=== PATIENT | male | born 1940 ===

== ENCOUNTER 2025-09-26 13:52 | Outpatient (AMB) | payer MEDICARE, OTHER, SELFPAY ==
--- NOTE | 2025-09-26 13:51 | A.PHYSOV ---
Vital Signs 09/26/25 13:53 Height 5 ft 11 in Weight 276 lb BMI 38.5 Intake Visit Reasons: Bilateral knee injections Intake Note: Patient is a 82 year old male here for bilateral knee injections. Sports Management Intern Required: No Allergies No Known Allergies Allergy (Verified 09/26/25 13:51) [facility] Surgical History H/O hemorrhoidectomy H/O endovascular stent graft for abdominal aortic aneurysm Status post cardiac surgery Social History Alcohol intake: never Patient Tobacco Use Status: Never used Tobacco Current occupational status: retired Physical Exam Vital Signs: BMI result Body Mass Index 38.5 Office Procedures AMB Knee Injection AMB Knee Injection Procedure Details: Bilateral Knee injection: The risks, benefits and complications of the left knee injection were discussed with the patient including but not limited to increased serum glucose, infection, nerve pain, fat atrophy, pigment augmentation, bleeding and pain. All questions were answered to the patient's satisfaction. Verbal consent was obtained. The patient was eager to proceed. Using aseptic technique with Betadine, ethyl chloride was then used to desensitize the skin. Using a 22-gauge needle 40 mg of Kenalog and 3 mL 2% lidocaine were injected into the knee joint. A Band-Aid was applied. Patient tolerated the procedure well without immediate complication. Postinjection instructions were given. The procedure was repeated on the right. Knee Injection - : Bilateral All charges added?: Procedure code (CPT) selection complete Office Meds Kenalog 40 mg/mL suspension for injection Performing Provider: JACINTA Amaya Performing Location[facility] Administered by: JACINTA Amaya on 09/26/25 14:15 Dose Route Admin Location Dispensed Lot Number Expiration Date [facility] Boxer Operator 40 mg intra-articular 1 mL [id number] [employer] Total Dispensed Waste 1 mL 0 % lidocaine (PF) 20 mg/mL (2 %) injection solution Performing Provider: JACINTA Amaya Performing Location: [facility] Administered by: JACINTA Amaya on 09/26/25 14:15 Dose Route Admin Location Dispensed Lot Number Expiration Date [facility] Boxer Operator 60 mg intra-articular 50 mL [id number] Total Dispensed Waste 50 mL 0 % Assessment & Plan Assessment & Plan (1) Bilateral primary osteoarthritis of knee: Code(s): M17.0 - Bilateral primary osteoarthritis of knee Category: Medical Plan Mr. Kaiser is an 85-year-old male seen in evaluation today for bilateral knee osteoarthritis. Today consented to bilateral knee corticosteroid injection. He is given post-injection instructions, recommend: Moist heat compresses for 15 minutes with 5 times daily. Continue low-impact activities such as walking, biking and swimming. Follow-up with our office as needed. Orders: Orders AMB Knee Injection Today M17.0 - Bilateral primary osteoarthritis of knee Coding Level of Care Code Procedure Only Diagnoses Bilateral primary osteoarthritis of knee M17.0 CPT Codes AMB Knee Injection - Hip/Bursa Injection - : Bilateral ([id number])
[2025-09-26 13:53] VITALS: BMI 38.5
--- OUTSIDE RECORDS SUMMARY | 2025-09-26 17:46 | XMS_ITS | Continuity of Care Document ---
Author Organization [facility] [address] [place] [address] Phone [phone] Care Team Providers Care Oracle Soa Architect Name Role Phone Yasmeen Rich MD Care Team Information Mechanical Sound Technician [phone] Problems Active Problems Provider Date Type 2 diabetes mellitus Reji Stewart M.D. O nset: 08/07/2022 Placement of stent in coronary artery Reji strauss M.D. Onset: 08/07/2022 Kidney stone Reji Stewart M.D. Onset: 04/2022 Insulin treated type 2 diabetes mellitus Reji lindsey M.D. Onset: 08/11/2023 Hypercholesterolemia Reji Stewart M.D. Onset : 08/07/2022 Essential hypertension Reji Stewart M.D. Ons et: 08/07/2022 Rheumatoid arthritis Reji Stewart M.D. Onset : 08/07/2022 Asymptomatic coronary heart disease Reji martinez M.D. Onset: 08/07/2022 Social History Type Date Description Comments Sex Male Sex Unknown Tobacco Use Start: Unknown Never Smoked Cigarettes ETOH Use Never used alcohol Allergies and adverse reactions Description No Known Drug Allergies Medications Active Medications SIG Qnty Indications Order ing Provider Date Metformin HCL [id number] Tablets ER 24HR take 1 tablet by mouth qpm 90tabs Reji Stewart M.D. 11/13/2023 BD Pen Vinayak Uf Short 8mm 100'S 31G5/16 Use Once Daily In The Evening as Directed 100units Reji Stewart M.D. 11/06/2023 Freestyle Lite TestStrips use to test blood sugars twice a day 200units E11.9 Reji Stewart M.D. 06/12/2023 Freestyle Lite Blood Glucose Monitoring SystemW/Device Kit use to test blood sugar twice daily dx:E11.9 1units Reji Stewart M.D. 06/05/2023 Lantus Teisrrtg868Xwld/ML Solution Pen-Inject Inject 80 Units Under The Skin Daily 75units Reji Stewart M.D. 08/07/2022 BD Pen Needle/Short/Ultra- Fine/31G X 8mm31G X 8 mm Misc use 1 syringe once daily in the evening as directed Dx: E11.9 100units E11Rad Stewart M.D. 08/07/[address] 1 qd Reji Stewart M.D. 08/07/2022 Metoprolol Succinate BB783th Tablets ER 24HR 1 by mouth every day Reji Stewart M.D. 08/07/2022 Humira Pen CF40mg/0.4ML PNKT q 2 weeks Reji Stewart M.D. 08/07/2022 Kjkcskkyv36kz Tablets 1 by mouth every day 30tabs Reji Stewart M.D. 08/07/2022 Folic Hodk4zx Tablets 1 by mouth twice a day Reji Stewart M.D. 08/07/2022 Onetouch Delica Plus Lancets Extra Fine 33GPlus 33G Misc 1 lancet to finger once a day Dx: E11.9 100units E11Rad Stewart M.D. 08/07/2022 Onetouch VerioStrips use to test blood sugar once daily dx:E11.9 100units E11.9 Reji Stewart M.D. 08/07/2022 Methotrexate2.5mg Tablets 8 tabs every Halista S cott M, Urnwlgnntu34uj Tablets 1 tabs by mouth every day 90tabs Unknown Atorvastatin Mxpusgb44mc Tablets 1 by mouth every day Bertha Quezada e Hydrochlorothiazide 25mg Tablets 1 by mouth every day 90tabs Unknown / 000 Trulicity1.5mg/0.5M L Solution Pen-Inject inject 1.5mg subcutaneously every week 6ml Reji Stewart M.D. Vital Signs Date Vital Result Comment 11/13/2023 1:25pm BP Systolic 122 mmHg BP Diastolic 70 mmHg Heart Rate 105 /min Height 73 inches 6'1 Weight 286.00 lb BMI (Body Mass Index) 37.7 kg/m2 Results Test Acquired Date Facility Test Result H/L Range N ote Hemoglobin A1c 11/13/2023 Inhouse Hemoglobin A1c 7.6% Glucose Fingerstick 11/13/2023 Inhouse Glucose Fingerstick 200 Hemoglobin A1c 08/11/2023 Inhouse Hemoglobin A1c 7.5% Glucose Fingerstick 08/11/2023 Inhouse Glucose Fingerstick 139 Hemoglobin A1c 04/06/2023 Inhouse Hemoglobin A1c 7.1% Glucose Fingerstick 04/06/2023 Inhouse Glucose Fingerstick 237 Hemoglobin A1c 08/07/2022 Inhouse Hemoglobin A1c 6.8% Glucose Fingerstick 08/07/2022 Inhouse Glucose Fingerstick 144 Medical Devices Description No Information Available Encounters Type Date Location Provider Dx Diagnosis Office Visit 11/13/2023 1:00p Main Office Reji Stewart M.D. E11.9 Type 2 diabetes mellitus without complications Z79.4 moth exterminator (current) use of insulin I25.89 Other forms of chron ic ischemic heart disease M06.9 Rheumatoid arthritis , unspecified I10 Essential (primary) hypertension Assessments Date Code Description Provider 11/13/2023 E11.9 Type 2 diabetes mellitus without complications Reji Stewart M.D. 11/13/2023 Z79.4 moth exterminator (current) use of i nsulin Reji Stewart M.D. 11/13/2023 I25.89 Asymptomatic coronary heart disease Reji Stewart M.D. 11/13/2023 M06.9 Rheumatoid arthritis Reji lindsey M.D. 11/13/2023 I10 Essential hypertension Reji Stewart M.D. Plan of Treatment No Information Available Functional Status Description No Information Available Mental Status Description No Information Available Referrals Description No Information Available
--- OUTSIDE RECORDS SUMMARY | 2025-09-26 17:46 | XMS_ITS | Encounter Summary ---
Author Organization [facility] Address [address] [place] [address] Care Team Providers Care Arc Welding Machine Operator Name Role Phone Ashley Hughes MD Primary Care Provider Reason for Visit * Reason Onset Date Comments referral 11/15/2024 Encounter Details Date Type Department Care Team (Late st Contact Info) Description 11/15/2024 Telephone [facility] [address] [place] [address] Mag Arreola DO [address] [place] [address] Social History Tobacco Use Types Packs/Day Years Used Date Smoking Tobacco: Former Cigarettes 1.5 40 0 [birth year]02/1954 - 11/02/1994 Smokeless Tobacco: Never Alcohol Use Standard Drinks/Week Comments No 0 (1 standard drink = 0.6 oz pur e alcohol) Sex and Gender Information Value Date Recorded Sex Assigned at Male 01/05/2025 10:04 AM EST Legal Sex Male 2:03 AM EST Gender Identity Male 01/05/2025 10:04 AM EST Sexual Orientation Straight 01/05/2025 10 :04 AM EST documented as of this encounter Progress Notes * Tarsha Lopez - 11/15/2024 1:48 PM EST Referral Request: What insurance does the patient have today? / Referrals cannot be processed if the insurance is not accurate. If the insurance listed above in red is NO BILLING INFORMATION FOUND FOR THIS ENCOUTNER The patients correct insurance must be obtained and registered in [facility] or their referral can not be processed. Is this a retro request? no. If yes for what date of service do you need the retro referral? not applicable Who is calling to request this referral? Pts daughter If the caller is not the patient, what is their name? belia Ask the patient WHO referred them to this specialty: Patient self referred FIRST and LAST NAME of SPECIALIST PATIENT is seeing: unknown What specialty is this? radar repairer DIAGNOSIS Patient is being seen for (Not a body part or a procedure): diabetic/nutrition Have you seen this SPECIALIST for this PROBLEM/DX before? If YES, when? No Have you checked REVIEW or the APPT DESK to see if this referral has already been done or has visits left? no Is this visit: Initial Visit Address of Specialist: unknown Phone # of Specialist: unknown Fax #: (if applicable): unknown Does patient have an appointment scheduled?: no Date of appointment- (including a retro-request): n/a Is this appointment related to: n/a documented in this encounter Plan of Treatment Upcoming Encounters Date Type Department Care Team (Late st Contact Info) Description 10/11/2025 11:30 AM EST Office Visit Internal Medicine - [address] [address] Jaci Coffman NP [address] [place] [address] 10/17/2025 7:40 AM EST Office Visit [facility] [address] [facility] [address] [place] [phone] Marj Bell NP [address] [place] [address] [place] [address] 10/23/2025 1:45 PM EST Office Visit Orthopedic Surgery - [place] [address] [facility] [address] [place] [id number] Mars Goff, DPLay [address] [facility] [address] [place] [address] documented as of this encounter Visit Diagnoses Diagnosis Type 2 diabetes mellitus without complication, unspecified whether longterm insulin use- Primary documented in this encounter Additional Health Concerns Assessment Noted Time PHQ-9 Depression Total Score: 1 10/06/20 11:35 AM EST A fall risk assessment has been complete d for the patient 10/05/2024 4:52 PM EST documented as of this encounter Care Teams Arc Welding Machine Operator Relationship Specialty Start Date End Date Ashley Hughes MD [address] [place] [address] PCP - General Internal Medicine 06/22/25 documented as of this encounter
--- OUTSIDE RECORDS SUMMARY | 2025-09-26 17:46 | XMS_ITS ---
Author Name [facility] Organization Unknown Care Team Organization Name Specialty Phone Email Start Date End Da te [facility] 06/21/2025 [facility] Yasmeen Rich Primary Care 04/10/20232023 [facility] Termed, PROVIDER Primary Care 09/09/202206/02
--- OUTSIDE RECORDS SUMMARY | 2025-09-26 17:46 | XMS_ITS | Clinical Summary ---
Author Organization [facility] Address [address] [place] [address] Phone Care Team Providers Care Dental Service Technician Name Role Phone Mag Arreola DO Primary Care Provider [phone] Allergies No known active allergies Medications atorvastatin (LIPITOR) 80 MG tablet Take 80 mg by mouth daily. 4 Active meloxicam (MOBIC) 15 MG tablet Take 15 mg by mouth daily. Active folic acid (FOLVITE) 1 MG tablet Take 1 mg by mouth daily. 5 Active furosemide (LASIX) 20 MG tablet Take 40 mg by mouth daily. Active MULTIVITAMIN ORAL Take 1 capsule by mouth daily. Active tamsulosin (FLOMAX) 0.4 mg Cap Take 0.4 mg by mouth daily. 4 Active lisinopril (PRINIVIL,ZEST RIL) 10 MG tablet Take 10 mg by mouth daily. 4 Active acetaminophen (TYLENOL) 650 MG CR tablet Take 1,300 mg by mouth 2 (two) times a day. Active XARELTO DVT-PE TREAT 30D START 15 mg (42)- 20 mg (9) tablets in DVT/PE starter pack 5 Active gabapentin (NEURONTIN) 100 MG capsule Take 100 mg by mouth every 12 (twelve) hours. 5 Active HUMIRA,CF, PEN 40 mg/0.4 mL pen kit citrate free Inject 40 mg under the skin every 14 (fourteen) days. 5 Active blood-glucose meter kit by Other route as needed for other (free text field). Freestyle lite Active FREESTYLE LITE Strp strips 1 each by Miscellaneous route as needed. Active metoprolol succinate (TOPROL-XL) 100 MG 24 hr tablet Take 1 tablet (100 mg total) by mouth daily. 5 Active rivaroxaban (XARELTO) 15 mg Tab Take 15 mg by mouth daily. 5 Active nitroglycerin (NITROSTAT) 0.[address] 0.4 mg under the tongue. 4 Active LANTUS SOLOSTAR U-100 INSULIN 100 unit/mL (3 mL) InPn injection penIndications :Type 2 diabetes mellitus with peripheral neuropathy Inject 56 Units under the skin nightly at bedtime. 5 Active Active Problems Problem Noted Date Diagnosed Date Osteoarthritis 04/10/2025 Type 2 diabetes mellitus with peripheral neuropa thy 04/10/2025 Assessment & Plan (07/24/2025 1:53 PM EDT): Control is good based upon the patient's freestyle radha 3+ sensor download. No frequent or severe hypoglycemia. Will maintain his regimen. Continue to work on eating healthy and being active. To call or message with any issues managing his glucose levels. Up to date with ophtho. Labs ordered Assessment & Plan (04/10/2025 2:09 PM EDT): 84 yo man with longstanding Type 2 diabetes, control appears excessively tight given age/co-morbidities with near-normal HbA1c on high dose insulin. Hx intolerance to metformin (diarrhea). He has peripheral neuropathy & CKD. Discussed rationale & goals for control. Role of diet, exercise, medications. Role of & goals for HbA1c & SMBG. Reviewed options to improve control with risks & benefits, including intensification of lifestyle & available medications. Will lower insulin from 80 to 70 units. Will refer to RD/CDE for help with dietary modifications. Will send in paperwork for radha. Continue to work on eating healthy & keeping active. To call or send in log with problems with glucose control. Follows w/ podiatry. Up to date with ophthoBP & lipids under good control. BPH (benign prostatic hyperplasia) 02/03/2025 COPD (chronic obstructive pulmonary disease) 01/2025 Kidney tumor 02/03/2025 Memory loss 02/03/2025 CAD (coronary artery disease) 11/02/2024 Anemia 04/01/2024 Kidney stone 08/07/2022 Rheumatoid arthritis 08/07/2022 Edema 11/13/2021 Overview (04/10/2025): Last Assessment & Plan: Patient presents today with leg edema. He states that this does improve with elevation . He is unable to use compression stockings due to difficulty getting them on. I will switch his hydrochlorothiazide to furosemide and repeat a basic metabolic panel in 1 week. Essential hypertension 06/15/2018 Overview (04/10/2025): Last Assessment & Plan: Patient's blood pressure is borderline today with a reading of 140/78. I am transitioning hydrochlorothiazide to furosemide due to leg edema and this may also help his blood pressure. He continues on lisinopril and metoprolol. GERD (gastroesophageal reflux disease) 7 Hypercholesterolemia 12/18/2016 Overview (04/10/2025): Last Assessment & Plan: Patient's last LDL cholesterol was 59. This is at goal. Continue with statin as prescribed. Hearing loss 08/18/2010 Encounters Date Type Department Care Team Description 09/13/2025 Telephone [facility] [address] [address] Crystal Serrano MA Medication Refill 08/31/2025 3:00 PM EDT Nutrition [facility] [address] [place] [phone] Ruthy Deal LDN Type 2 diabetes mellitus with peripheral neuropathy (Primary Dx) 07/17/2025 12:30 PM EDT Office Visit [facility] [place] [address] [facility] [place] [phone] Margo Rios PA-C Type 2 diabetes mellitus with peripheral neuropathy (Primary Dx) 07/11/2025 12:05 PM EDT - 07/11/2025 3:27 PM EDT Emergency [facility] [address] [place] [address] Rafa Jerome MD Discharge Disposition: Home or Self Care 07/04/2025 Refill [facility] [address] [place] [address] Dacia Jones CMA Medication Refill from Last 3 Months Immunizations Immunization Administration Dates Next Due COVID-19 (Pre-08/24) Pfizer Vaccine, mRNA, PF 01/01/2021,12/11/2020 INFLUENZA, SPLIT VIRUS, TRIVALENT PF 08/20/2016, 07/22/2010 INFLUENZA, SPLIT VIRUS, TRIV ALENT W/ PRESERVATIVE IM 08/06/2020,08/11/2017,10/04/2012,03/08 Influenza High-Dose Quadriva lent Preservative Free IM 09/11/2023,10/06/2019,08/25/2018,08/07,08/26/2013 Influenza Trivalent Adjuvant ed Preservative free IM 06/24/2021 Influenza, Unspecified Formulation 08/02/2022,,08/16/2018 Pneumococcal conjugate PCV13 12/16/2017 Pneumococcal polysaccharide PPSV23 11/13/2006 Td, unspecified formulation 06/07/2012 Tdap 09/12/2020 Social History Tobacco Use Types Packs/Day Years Used Date Smoking Tobacco: Never Smokeless Tobacco: Never Tobacco Cessation:Counseling Given: Not Answered Alcohol Use Standard Drinks/Week Comments Not Currently 0 (1 standard drink = 0.6 oz pur e alcohol) Education Answer Date Recorded Are you interested in more education? Not on benji e 07/15/2024 Are you concerned about learning? Not on file 07/15/2024 No 07/15/2024 No 07/15/2024 Food Answer Date Recorded Within the past 6 months we worried whether our food would run out before we got money to buy more. Never True 07/11/2025 Within the past 6 months the food we bought just didn't last and we didn't have enough money to get more. Never True Residential Stability Answer Date Recor ded What is your housing situation today? I have senthil sing 07/11/2025 How many times have you move d in the past 12 months? Zero (I did not move) 07/11/2025 Paying for Meds Answer Date Recorded Do you have trouble paying for medicines? No 07/11/2025 Paying Utility Bills Answer Date Record ed Do you have trouble paying your heating or elect ricity bill? No 07/11/2025 Transportation Answer Date Recorded Has the lack of transportati on kept you from medical appointments or from getting medications? No 07/11/2025 Digital Access Answer Date Recorded No 07/11/2025 Yes 07/11/2025 Do you have reliable internet access at home? Ye s 07/11/2025 Do you have a device (e.g., phone, tablet, computer) with a working camera? Yes 07/11/2025 Intimate Partner Violence Answer Date R ecorded Are you denied basic needs s uch as food, clothing, or medical care? No 07/11/2025 In the past 12 months have y ou been in a relationship with a person who hurts, threatens, or tries to control you? No 07/11/2025 Are you denied basic needs s uch as food, clothing, or medical care? No 07/11/2025 In the past 12 months have y ou been in a relationship with a person who hurts, threatens, or tries to control you? No 07/11/2025 Sex and Gender Information Value Date Recorded Sex Assigned at Not on file Legal Sex Male 2:49 PM EDT Gender Identity Not on file Sexual Orientation Not on file Last Filed Vital Signs Vital Sign Reading Time Taken Comments Blood Pressure 124/68 07/17/2025 12:06 PM EDT Pulse 56 07/17/2025 12:06 PM EDT Temperature 36.3 C (97.4 F) 07/17/2025 12:06 PM EDT Respiratory Rate 18 07/17/2025 12:06 PM EDT Oxygen Saturation 99% 07/17/2025 12:06 PM EDT Inhaled Oxygen Concentration - - Weight 121.1 kg (267 lb) 08/31/2025 2:07 PM EDT Height 185.4 cm (6' 0.99 ) 07/17/2025 12:06 PM E DT Body Mass Index 35.23 07/17/2025 12:06 PM EDT Plan of Treatment Upcoming Encounters Date Type Department Care Team (Late st Contact Info) Description 11/06/2025 11:40 AM EST Office Visit [facility] [place] [address] [place] [phone] Evlira Hunter MD [address] [phone] [email or web address] 01/11/2026 2:00 PM EDT Nutrition [facility] [address] [place] [phone] Ruthy Deal LDN [address] [place] [phone] 02/26/2026 1:10 PM EDT Office Visit [facility] [place] [address] [place] [phone] Margo Rios PA-C [address] [place], [place] [phone] [email or web address] Health Maintenance Due Date Last Done Comments DEPRESSION SCREENING 1952 ZOSTER VACCINES (1 of 2) 1959 RSV VACCINE (1 - 1-dose 75+ series) 2015 COVID-19 VACCINE (3 - Pfizer risk series) 01/29/2021 01/01/2021, 12/11/2020 DIABETIC EYE EXAM 04/10/2025 INFLUENZA VACCINE (#1) 2025 , 08/02/2022, 06/24/2021, Additional history exists BLOOD PRESSURE 01/14/2026 07/17/2025 HEMOGLOBIN A1C 01/23/2026 07/26/2025, 03/03/2025 CREATININE LEVEL 07/11/2026 07/11/2025, 03/18/2025 POTASSIUM LEVEL 07/11/2026 07/11/2025, 03/18/2025 Adult Td,Tdap Booster 09/12/2030 09/12/2020, 012 PNEUMOCOCCAL VACCINES (50+ years) Completed 12/16/2017, 11/13/2006 HEPATITIS A VACCINES Aged Out No long er eligible based on patient's age to complete this topic HIB VACCINES Aged Out No longer eligi ble based on patient's age to complete this topic MENINGOCOCCAL VACCINES (ACWY) Aged Out No longer eligible based on patient's age to complete this topic MENINGOCOCCAL VACCINES (B) Aged Out N o longer eligible based on patient's age to complete this topic Medical Devices Not on file Procedures Procedure Name Priority Date/Time Associated Diagnosis Comments US LOWER EXTREMITY VEINS DUPLEX COMPLETE (BILATERAL) Routine 07/11/2025 2:13 PM EDT Pain of left lower extremity TROPONIN STAT 07/11/2025 1:41 PM EDT D-DIMER Routine 07/11/2025 12:43 PM EDT TROPONIN STAT 07/11/2025 12:43 PM EDT BLOOD BANK HOLD SPECIMEN STAT 07/11/2025 12:43 PM EDT PT-INR STAT 07/11/2025 12:43 PM EDT CBC AND DIFFERENTIAL STAT 07/11/2025 12:43 PM EDT BASIC METABOLIC PANEL (BMP) STAT 07/11/2025 12:43 PM EDT POCT GLUCOSE STAT 07/11/2025 12:24 PM EDT ECG 12-LEAD STAT 07/11/2025 12:19 PM EDT POCT GLUCOSE Routine 07/11/2025 12:16 PM EDT from Last 3 Months Results * US Lower Extremity Veins Duplex Complete (Bilateral) (07/11/2025 2:13 PM EDT) MGB IMG CLOTH FEEDER COMMENT Partially occlusive thrombus in the left common femoral vein just inferior to the common femoral vein/greater saphenous vein. Limited evaluation of the left calf veins secondary to subcutaneous edema. [facility] Anatomical Region Laterality Modality Ultrasound 07/11/2025 2:52 PM EDT Impressions 07/11/2025 3:05 PM EDT Partially occlusive thrombus in the left common femoral vein just inferior to the common femoral vein/greater saphenous vein. Limited evaluation of the left calf veins secondary to subcutaneous edema. No DVT of the right leg. A clinically significant result was initiated on 07/11/2025 2:59 PM, Message ID [id number]. Narrative 07/11/2025 3:05 PM EDT US LOWER EXTREMITY VEINS DUPLEX COMPLETE (BILATERAL) Referring clinician's provided indication for this examination in [facility]: Leg deep vein thrombosis (DVT) suspected TECHNIQUE: Lower extremity venous ultrasound with color and spectral Doppler. COMPARISON: None FINDINGS: Right lower extremity Common femoral vein: Normal compressibility and flow characteristics. Femoral vein: Normal compressibility and flow characteristics. Proximal profunda femoral vein: Normal compressibility. Popliteal vein: Normal compressibility and flow characteristics. Posterior tibial veins: Normal compressibility. Peroneal veins: Not visualized Gastrocnemius veins: Normal compressibility. Great saphenous vein: Normal compressibility at the saphenofemoral junction. Other: None. Left lower extremity Common femoral vein: Compression: Partially compressible involving the left common femoral vein distal to the common femoral vein/greater saphenous vein junction. Age: Acute. Femoral vein: Normal compressibility and flow characteristics. Proximal profunda femoral vein: Normal compressibility. Popliteal vein: Normal compressibility and flow characteristics. Posterior tibial veins: Not visualized Peroneal veins: Not visualized Gastrocnemius veins: Not visualized Great saphenous vein: Normal compressibility at the saphenofemoral junction. Other: None. Procedure Note Ladonna Powell MD - 07/11/2025 US LOWER EXTREMITY VEINS DUPLEX COMPLETE (BILATERAL) Referring clinician's provided indication for this examination in [facility]:Leg deep vein thrombosis (DVT) suspected TECHNIQUE: Lower extremity venous ultrasound with color and spectralDoppler. COMPARISON: None FINDINGS: Right lower extremity Common femoral vein: Normal compressibility and flow characteristics. Femoral vein: Normal compressibility and flow characteristics. Proximal profunda femoral vein: Normal compressibility. Popliteal vein: Normal compressibility and flow characteristics. Posterior tibial veins: Normal compressibility. Peroneal veins: Not visualized Gastrocnemius veins: Normal compressibility. Great saphenous vein: Normal compressibility at the saphenofemoraljunction. Other: None. Left lower extremity Common femoral vein: Compression: Partially compressible involving theleft common femoral vein distal to the common femoral vein/greatersaphenous vein junction. Age: Acute. Femoral vein: Normal compressibility and flow characteristics. Proximal profunda femoral vein: Normal compressibility. Popliteal vein: Normal compressibility and flow characteristics. Posterior tibial veins: Not visualized Peroneal veins: Not visualized Gastrocnemius veins: Not visualized Great saphenous vein: Normal compressibility at the saphenofemoraljunction. Other: None. IMPRESSION: Partially occlusive thrombus in the left common femoral vein just inferiorto the common femoral vein/greater saphenous vein. Limited evaluation ofthe left calf veins secondary to subcutaneous edema. No DVT of the right leg. A clinically significant result was initiated on 07/11/2025 2:59 PM, MessageID [id number]. Rafa Jerome MD CV US VASCULAR F inal Result * (ABNORMAL) Troponin (07/11/2025 1:41 PM EDT) Only the most recent of2 resultswithin the time period is included. Troponin-T, HS Gen5 33(H) 0 - 14 ng/L [facility] Blood 07/11/2025 1:41 PM EDT 07/11/2025 1:48 PM EDT us Rafa Jerome MD LAB BLOOD BKR ORD ERABLES Final Result [facility] [address] [place] [address] * Hold Specimen In Blood Bank (07/11/2025 12:43 PM EDT) Expiration Date of Sample 07/14/2025 ,2359 [facility] Resulting Agency [facility] Blood 07/11/2025 12:4 3 PM EDT 07/11/2025 12:52 PM EDT Rafa Jerome MD LAB BLOOD BANK TE ST ORDERABLES Final Result Performing Organization Address [facility] Co de Phone Number [address] [address] * (ABNORMAL) PT-INR (07/11/2025 12:43 PM EDT) Pathologist [facility] PT 24.8(H) 10.2 - 12.9 sec [facility] INR 2.0(H) 0.9 - 1.1 [facility] Comment:Therapeutic range fo r oral Vitamin K antagonists: 2.0-3.5 Blood 07/11/2025 12:4 3 PM EDT 07/11/2025 12:52 PM EDT Rafa Jerome MD LAB BLOOD BKR ORD ERABLES Final Result Performing Organization Address [facility] Co de Phone Number [address] [address] * D-dimer (07/11/2025 12:43 PM EDT) D-DIMER 219 <500 ng/mL [facility] Comment:In patients with low to moderate pre-test probability scores for VTE (PE or DVT), a D-Dimer cut-off less than 500 ng/mL ([facility]) has a negative predictive value (NPV) of 97 to 100%. 07/11/2025 12:4 3 PM EDT 07/11/2025 12:52 PM EDT Rafa Jerome MD LAB BLOOD BKR ORD ERABLES Final Result [facility] [address] [place] [address] * (ABNORMAL) CBC and differential (07/11/2025 12:43 PM EDT) WBC 7.41 4.00 - 11.00 K/uL [facility] RBC 3.99(L) 4.50 - 5.90 M/uL [facility] HGB 11.6(L) 13.5 - 17.5 g/dL [facility] HCT 36.3(L) 41.0 - 53.0 % [facility] PLT 104(L) 150 - 450 K/uL [facility] MCV 91.0 80.0 - 100.0 fL [facility] MCH 29.1 27.0 - 31.0 pg [facility] MCHC 32.0 32.0 - 36.0 g/dL [facility] RDW 14.6(H) 11.5 - 14.5 % [facility] MPV 11.2 8.4 - 12.0 fL [facility] NRBC 0.00 0.00 /100 WBCs [facility] ABSOLUTE NRBC 0.00 0.00 K/uL [facility] DIFF METHOD Auto [facility] NEUTS 71.4 48.0 - 76.0 % [facility] LYMPHS 15.9(L) 18.0 - 41.0 % [facility] MONOS 10.1 4.0 - 11.0 % [facility] EOS 1.6 0.0 - 5.0 % [facility] BASOS 0.3 0.0 - 1.5 % [facility] Granulocytes, immature (%) 0.7 0.0 - 0.9 % [facility] ABSOLUTE NEUTS 5.29 1.92 - 7.60 K/uL [facility] ABSOLUTE LYMPHS 1.18 0.72 - 4.10 K/uL [facility] ABSOLUTE MONOS 0.75 0.16 - 1.10 K/uL [facility] ABSOLUTE EOS 0.12 0.00 - 0.50 K/uL [facility] ABSOLUTE BASOS 0.02 0.00 - 0.15 K/uL [facility] Granulocytes, immature 0.05 0.00 - 0.09 K/uL [facility] Blood 07/11/2025 12:4 3 PM EDT 07/11/2025 12:52 PM EDT Rafa Jerome MD LAB BLOOD BKR ORD ERABLES Final Result [address] [address] * (ABNORMAL) Basic metabolic panel (07/11/2025 12:43 PM EDT) SODIUM 138 133 - 146 mmol/L [facility] CHLORIDE 103 96 - 108 mmol/L [facility] POTASSIUM 5.3(H) 3.3 - 5.1 mmol/L [facility] CO2 24 21 - 35 mmol/L [facility] BUN 57(H) 6 - 19 mg/dL [facility] CREATININE 2.40(H) 0.5 - 1.5 mg/dL [facility] GLUCOSE 137(H) 70 - 99 mg/dL [facility] CALCIUM 9.2 8.4 - 10.3 mg/dL [facility] EGFR 26(L) >59 mL/min/1.7 3m2 [facility] Comment:Estimated glomerular filtration rate calculated using the CKD-EPI refit equation. ANION GAP 16 10 - 20 mmol/L [facility] Blood 07/11/2025 12:4 3 PM EDT 07/11/2025 12:52 PM EDT Rafa Jerome MD LAB BLOOD BKR ORD ERABLES Final Result [address] [address] * (ABNORMAL) POCT Glucose (07/11/2025 12:24 PM EDT) Glucose 158(A) 70 - 100 mg/dL 07/11/2025 12:2 4 PM EDT us Delvin Patel DO LAB POCT ENTER/EDIT ORDERABLE S Final Result * ECG 12-LEAD (07/11/2025 12:19 PM EDT) Ventricular Rate EKG/MIN 50 BPM [facility] Atrial Rate 50 BPM [facility] ME Interval 172 ms [facility] QRS Duration 142 ms [facility] QT Interval 482 ms [facility] QTC Interval 439 ms [facility] P [place]re[place] 66 degrees [facility] R Wave [place] -54 degrees [facility] T Wave [place] -3 degrees [facility] 07/11/2025 12:1 9 PM EDT 07/12/2025 9:07 AM EDT Narrative [facility] - 07/12/2025 9:07 AM EDT Sinus bradycardia Right bundle branch block Left anterior fascicular block Bifascicular block Abnormal ECG No previous ECGs available Confirmed by Hugo Alejandre ([id number]) on 07/12/2025 9:07:03 AM us Delvin Patel DO ECG ORDERABLES Final Result [facility] * (ABNORMAL) POCT Glucose (07/11/2025 12:16 PM EDT) Glucose, POCT 159(H) 70 - 100 mg/dL [facility] 07/11/2025 12:1 6 PM EDT 07/11/2025 1:24 PM EDT us Rafa Jerome MD POINT OF CARE JAZMIN T ORDERABLES Final Result [facility] [address] [place] [address] from Last [address] [place] [address] FOR [facility] MEDICARE SUPPLEMENT MEDICARE PART A & B Member Subscriber Plan / Payer (Ef fective 2006-Present) Name:Eduardo Kaiser Member ID:[id number] Relation to Subscriber:Self Name:Eduardo Kaiser Subscriber ID:[id number] Payer ID:[id number] Group ID:Not on file Type:Medicare Address: [employer] [address] [place] [address] MEDICARE SUPPLEMENT MEDICARE PART A & B FOR LIFE MEDICARE SUPPLEMENT MEDICARE PART A & B FOR LIFE MEDICARE SUPPLEMENT MEDICARE PART A & [place] [address] [place] [address] FOR LIFE MEDICARE SUPPLEMENT MEDICARE PART A & B [facility] FOR LIFE MEDICARE SUPPLEMENT MEDICARE PART A & B Care Teams Dental Service Technician Relationship Specialty Start Date End Date Susanne ArreolamanDO briana [address] [place] [address] PCP - General Internal Medicine 04/10/25 Additional Source Comments The information contained in this document represents components of the legal health record. It is not the complete legal health record.[facility]
--- OUTSIDE RECORDS SUMMARY | 2025-09-26 17:47 | XMS_ITS | Encounter Summary ---
Author Organization [facility] Address [address] [place] [address] Care Team Providers Care Gas Station Manager Name Role Phone Ashley Hughes MD Primary Care Provider [phone] Encounter Details Date Type Department Care Team (Late st Contact Info) Description 09/08/2025 Results Follow-Up [facility] [address] [place] [phone] Allison Fagan MA Social History Tobacco Use Types Packs/Day Years [...] AM EST documented as of this encounter Functional Status * Are you deaf or do you have serious difficulty hearing? Answer Date of Assessment Author No 03/17/2025 6:20 AM Aline Gordillo RN * Are you blind or do you have serious difficulty seeing, even when wearing glasses? Answer Date of Assessment Author No 03/17/2025 6:20 AM Aline Gordillo RN * Do you have serious difficulty walking or climbing stairs? Answer Date of Assessment Author Yes 03/17/2025 6:20 AM EDT Aline Jeffers RN * Do you have serious difficulty dressing or bathing? Answer Date of Assessment Author Yes 03/17/2025 6:20 AM EDT Aline Jeffers RN * Because of a physical, mental, or emotional condition, do you have serious difficulty doing errandsalone such as visiting the doctor? Answer Date of Assessment Author Yes 03/17/2025 6:20 AM EDT Aline Jeffers RN documented as of this encounter Mental Status * Because of a physical, mental, or emotional condition, do you have serious difficulty concentrating, remembering, or making decisions? (5 years old or older) Answer Entry Date Author No 03/17/2025 6:20 AM EDT Aline Jeffers RN documented in this encounter Plan of Treatment Upcoming Encounters Date Type Department Care Team (Late st Contact Info) Description 10/11/2025 11:30 AM EST Office Visit Internal Medicine - [address] [phone] Jaci Coffman, NEEL [address] [place] [address] 10/17/2025 7:40 AM EST Office Visit [facility] [address] [facility] [address] [place] [address] Marj Bell, NEEL [address] [place] [address] [address] [place] [address] 10/23/2025 1:45 PM EST Office Visit Orthopedic Surgery - [facility] [address] [facility] [address] [place] [address] Mars Goff DPM [address] [address] documented as of this encounter Visit Diagnoses Not on filedocumented in this encounter Additional Health Concerns Assessment Noted Time PHQ-9 Depression Total Score: 1 10/06/20 11:35 AM EST A fall risk assessment has been complete d for the patient 10/05/2024 4:52 PM EST documented as of this encounter Care Teams Gas Station Manager Relationship Specialty Start Date End Date Ashley Hughes MD [address] [facility] [place] [phone] PCP - General Internal Medicine 06/22/25 documented as of this encounter
--- OUTSIDE RECORDS SUMMARY | 2025-09-26 17:47 | XMS_ITS | Clinical Summary ---
Author Organization [address] [place] [address] Address [address] [place] [address] Phone Care Team Providers Care Outsole Paraffiner Name Role Phone Ashley Hughes MD Primary Care Provider [phone] Allergies No known active allergies Medications blood-glucose meter kit 1 Device by Does not apply route as needed for Other Active FREESTYLE LANCETS MISC 1 Each by Does not apply route 4 times daily Active glucose blood test strip 1 Strip by In Vitro route 4 times daily Active tamsulosin (FLOMAX) 0.4 mg 24 hr capsule Take 1 capsule (0.4 mg total) by mouth at bedtime. 4 Active nitroglycerin (NITROSTAT) 0.4 mg SL tablet 4 Active adalimumab (Humira) 40 mg/0.8 mL syringe Inject 40 mg mL into the skin every 14 days. As directed 9 Active folic acid (FOLVITE) 1 mg tablet Take 1 tablet (1 mg total) by mouth 1 (one) time each day. 9 Active insulin glargine (Lantus Solostar U-100 Insulin) 100 unit/mL (3 mL) injection pen INJECT 80 UNIT BEDTIME 45 mL 1 5 Active acetaminophen (TYLENOL 8 HOUR) 650 mg 8 hr tablet Take 2 tablets (1,300 mg total) by mouth 2 (two) times a day. Do not crush, chew, or split. Active meloxicam (MOBIC) 15 mg tablet Take 1 tablet (15 mg total) by mouth 1 (one) time each day. Active atorvastatin (LIPITOR) 80 mg tablet Take 1 tablet (80 mg total) by mouth 1 (one) time each day. 90 each 1 5 10/01/20 25 Active furosemide (LASIX) 20 mg tablet One tablet by mouth twice a day 180 tablet 2 5 Active rivaroxaban (XARELTO) 20 mg tablet Take 1 tablet (20 mg total) by mouth 1 (one) time each day. With meals 90 tablet 3 5 Active metoprolol succinate (TOPROL-XL) 100 mg 24 hr tablet Take 1 tablet (100 mg total) by mouth daily. 5 Active triamcinolone (KENALOG) 0.1 % ointment Apply topically 2 (two) times a day if needed for irritation or rash. 60 g 5 12/14/19 26 Active Active Problems Problem Noted Date Diagnosed Date Acute deep vein thrombosis ( DVT) of femoral vein of left lower extremity ([facility] V24, [facility] V28) 03/18/2025 Assessment & Plan (04/05/2025 4:29 PM EDT): Acute versus chronic non-occlusive left CFV and mid SSV thrombus was seen on venous duplex ultrasound done 03/16/2025. He was transitioned to a loading dose of Xarelto 15 mg twice daily for 21 days. Reviewed transitioning to Xarelto 20 mg daily thereafter. Memory loss 02/03/2025 A-fib (CMS/[facility] V24, CMS/[facility] V28) 02/03/2025 Assessment & Plan (04/05/2025 4:27 PM EDT): Patient has a history of paroxysmal atrial fibrillation. An EKG completed in [facility] on 03/17/2025 showed sinus bradycardia with a rate of 53 bpm. Holter monitor completed last month showed the predominant rhythm was normal sinus rhythm and sinus bradycardia with an average heart rate of 55 bpm and a right bundle branch block. Frequent atrial ectopy with PACs and atrial runs up to 18 beats in duration suggestive of a pulmonary vein trigger. No significant pauses. He is on Xarelto for stroke risk reduction for a [id number] or 5. Monitor for unusual bruising or bleeding. Continue current medical therapy with metoprolol as prescribed. Assessment & Plan (02/09/2025 4:18 PM EDT): New onset paroxysmal atrial fibrillation noted during recent hospital stay at [facility]. EKG done in the office today shows a sinus rhythm with a right bundle branch block and left anterior fascicular block with a rate of 59 bpm. He should be on anticoagulation for [id number] score of 5. Eliquis 5 mg twice daily sent to his pharmacy. I have asked him to discontinue the aspirin in the setting of stable coronary artery disease and low platelet count 95. He has been advised to monitor for unusual bruising or bleeding. Will also increase metoprolol to 150 mg once a day given Afib with RVR noted during hospital stay. I have ordered a 48- hour Holter monitor to assess burden and heart rate and will make adjustments as needed. Dizziness 02/03/2025 Kidney tumor 02/03/2025 COPD (chronic obstructive pu lmonary disease) ([facility] V24, [facility] V28) 02/03/2025 Chest pain 02/03/2025 BPH (benign prostatic hyperplasia) 02/03/2025 Class 2 severe obesity with serious comorbidity and body mass index (BMI) of 35.0 to 35.9 in adult 08/08/2024 Anemia 04/01/2024 Dysuria 03/16/2024 Overview (08/08/2024): Last Assessment & Plan: Patient is complaining of intermittent dysuria for the last year. He also reports dark urine and occasional odiferous urine. I have taken the liberty of resuming his Flomax and sending him to the lab for urinalysis and culture. He is following with his primary care provider next month and will be able to follow-up on this issue at that time. 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 We will update an echocardiogram in 6 months for ongoing surveillance. Edema 11/13/2021 Overview (08/08/2024): Last Assessment & Plan: Patient presents today with leg edema. He states that this does improve with elevation . He is unable to use compression stockings due to difficulty getting them on. I will switch his hydrochlorothiazide to furosemide and repeat a basic metabolic panel in 1 week. Assessment & Plan (04/05/2025 4:31 PM EDT): Chronic bilateral lower extremity edema, with clinically significant reflux in the GSV bilaterally. Patient recently obtained a prescription for leg wraps from his primary care provider. Encouraged him to keep legs elevated is much as possible. Continue efforts to avoid excess salt in the diet. Continue furosemide 40 mg daily as prescribed. Assessment & Plan (02/09/2025 4:31 PM EDT): Patient has a longstanding history of chronic bilateral lower extremity edema, likely in the setting of venous insufficiency and obesity however may also be an element of heart failure in the setting of diastolic dysfunction, IVC dilated and RA pressure estimated at 8 mmHg. I will have him increase furosemide to 40 mg in the morning and 20 mg in the afternoon. Update BMP and BNP next week. Will also obtain bilateral lower extremity venous duplex study to assess for venous insufficiency. I have asked him to call early next week with an update how he responds to increased diuretic. 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 Terry Tee Assessment & Plan (10/06/2024 1:05 PM EST): Orders: Hemoglobin A1c; Future Hypertension 06/15/2018 Overview (08/08/2024): Last Assessment & Plan: Patient's blood pressure is borderline today with a reading of 140/78. I am transitioning hydrochlorothiazide to furosemide due to leg edema and this may also help his blood pressure. He continues on lisinopril and metoprolol. Assessment & Plan (04/05/2025 4:23 PM EDT): Blood pressure is well-controlled in the office today at 102/58. Patient denies symptoms of lightheadedness/near syncope. No change to present medical therapy, continue on metoprolol and lisinopril as prescribed. Assessment & Plan (02/09/2025 4:27 PM EDT): Blood pressure is well-controlled in the office today at 126/60. Continue lisinopril, metoprolol and furosemide as prescribed. GERD (gastroesophageal reflux disease) 7 CAD (coronary atherosclerotic disease) 7 Overview (08/08/2024): Last Assessment & Plan: Patient has history of coronary artery disease status post angioplasty of the LAD and OM in 2013. Patient denies any exertional anginal symptoms. He continues on cardioprotective medical therapy with aspirin, beta-wilver and statin. I have reviewed with the patient the importance of a heart healthy lifestyle which includes eating a low-fat low-salt diet, getting regular exercise, maintaining a healthy weight, not smoking, and following up with routine medical care. Assessment & Plan (04/05/2025 4:22 PM EDT): Patient has a remote history of coronary artery disease status post angioplasty of the LAD and OM in 2013. He had a pharmacological nuclear stress test in December 2024 which was negative, myocardial perfusion imaging was normal without any fixed or reversible perfusion defects. Denies anginal symptoms. No change to current medical therapy, continue on atorvastatin, metoprolol and Eliquis monotherapy given stable CAD. Assessment & Plan (02/09/2025 4:32 PM EDT): Patient has a remote history of coronary artery disease status post angioplasty of the LAD and OM in 2013. Recent admission at [facility] for exertional chest pain prompted a pharmacological nuclear stress test which was negative, myocardial perfusion imaging was normal without any fixed or reversible perfusion defects. Troponins were flat and EKG was nonischemic. He denies any further episodes of chest discomfort. No change to present medical therapy, continue with atorvastatin, metoprolol and Eliquis in place of aspirin given stable CAD and concomitant need for stroke prophylaxis in the setting of atrial fibrillation. Chronic rheumatic arthritis ([facility] V24, [facility]/ C V28) 12/18/2016 Overview (08/08/2024): Follows with Dr. Stern/Dr. Griffin at [facility] Methotrexate, meloxicam Hypercholesterolemia 12/18/2016 Overview (08/08/2024): Last Assessment & Plan: Patient's last LDL cholesterol was 59. This is at goal. Continue with statin as prescribed. Assessment & Plan (04/05/2025 4:28 PM EDT): Last lipid panel reviewed and under excellent control with an LDL of 46 which is at goal of <70. Continue atorvastatin as prescribed. Assessment & Plan (02/09/2025 4:19 PM EDT): Last lipid panel reviewed, somewhat outdated but under reasonable control with an LDL of 59 which is at goal of <70. Will update a fasting lipid panel. Continue high- dose atorvastatin as prescribed. Osteoarthrosis 08/14/2011 Overview (08/08/2024): Comments: [facility] Hearing loss 08/18/2010 Encounters Date Type Department Care Team Description 09/22/2025 Billing Patient Not Present Internal [facility] - [address] [place] [address] eGoff Kathleen PA Diastolic congestive heart failure, unspecified HF chronicity ([facility] V24, [facility] V28) (Primary Dx); Anemia, unspecified type; Atrial fibrillation, unspecified type ([facility] V24, [facility] V28); Benign prostatic hyperplasia without lower urinary tract symptoms; Hearing loss, unspecified hearing loss type, unspecified laterality; Old myocardial infarction; emt intermediate (current) use of insulin ([facility]/HCC V24, CMS/HCC V28) 09/22/2025 Telephone Internal Medicine - [address] [phone] Ashley Hughes MD 09/08/2025 Results [facility] [phone] Allison Fagan MA 08/30/2025 Telephone Internal Medicine - [address] [phone] Ashley Hughes MD 08/16/2025 9:45 AM EDT Office Visit Walk-In Clinic - [address] [phone] Sanjuanita Pérez NP Dermatitis (Primary Dx) 08/15/2025 Telephone Internal Medicine - [address] [phone] Ashley Hughes MD 08/15/2025 Telephone Internal Medicine - [address] [phone] Ashley Hughes MD 08/11/2025 Results Follow-Up Internal Medicine - [address] [phone] Allison Fagan MA 08/08/2025 Telephone Internal Medicine - [address] [phone] Ashley Hughes MD 08/02/2025 Telephone Internal Medicine - [address] [phone] Ashley Hughes MD 07/26/2025 11:20 AM EDT Lab Draw Station - [address] Type 2 diabetes mellitus with polyneuropathy (CMS/HCC V24, CMS/HCC V28) (Primary Dx); Paroxysmal atrial fibrillation (CMS/HCC V24, CMS/HCC V28) 07/26/2025 10:30 AM EDT [facility] [phone] Jaci Coffman, NEEL Postural dizziness with near syncope (Primary Dx); Primary hypertension; Atrial fibrillation, unspecified type ([facility] V24, [facility] V28); Deep vein thrombosis (DVT) of distal vein of left lower extremity, unspecified chronicity ([facility] V24, [facility] V28); Type 2 diabetes mellitus without complication, unspecified whether fdc insulin use ([facility] V24, [facility] V28); Hypercholesterolemia; Stage 4 chronic kidney disease ([facility] V24, [facility] V28); Benign prostatic hyperplasia with urinary frequency 07/25/[address] [facility] - [facility] [address] [facility] [address] [place] [phone] Lucy Lenz MD 07/24/2025 Telephone [facility] [address] [place] [address] Ashley Hughes MD 07/24/2025 Telephone [facility] [phone] Ashley Hughes MD 07/14/2025 Telephone Internal Medicine - [address] [phone] Ashley Hughes MD 06/28/2025 Telephone Internal Medicine - [address] [phone] Ashley Hughes MD from Last 3 Months Immunizations Immunization Administration Dates Next Due Influenza trivalent, 0.5mL ( Fluad) 65yo and older 06/24/2021 Influenza trivalent, 0.5mL ( Fluzone High-dose) 65yo and older 09/11/2023,10/06/2019,08/25/2018,08/07,08/26/2013 Influenza trivalent, 0.5mL, preservative free (Fluarix; FluLaval; Fluzone) ages 6mo and older (Afluria) 3 years and older 08/20/2016,07/22/2010 Influenza trivalent, with pr eservative (Fluzone; Afluria) 6mo and older 08/06/2020,08/11/2017 Influenza, Unspecified 08/02/2022,08/06/2020, Pneumococcal conjugate 13 va lent (Prevnar 13, PCV13) 2mo and older 12/16/2017 Pneumococcal polysaccharide 23 valent (Pneumovax 23) 2yo and older 11/17/2006 Tdap Tetanus diptheria acell ular pertussis (Boostrix; Adacel) 7yo and older 09/12/2020 Surgical History Surgery Date Site/Laterality Comments CARDIAC CATHETERIZATION PROCEDURE: HISTORICAL CARDIAC CATH; COMMENT: stent placementx2 CYST REMOVAL PROCEDURE: DE EXCISION PILONIDAL CYST/SINUS SIMPLE ANGIOPLASTY PROCEDURE: HISTORICAL ANGIOPLASTY; COMMENT: percutaneous transluminal OTHER SURGICAL HISTORY PROCEDURE: ---- OTHER ----; COMMENT: cardiac ablation CATARACT EXTRACTION 2018 Left PROCEDURE: HISTORICAL CATARACT REMOVAL CATARACT EXTRACTION 2018 Left PROCEDURE: HISTORICAL CATARACT REMOVAL COLONOSCOPY PROCEDURE: HISTORICAL COLONOSCOPY Medical History Medical History Date Comments GERD (gastroesophageal reflux disease) 04/30/2017 DX:GERD (gastroesophageal reflux disease) CAD (coronary atherosclerotic disease) 12/18/2016 DX:CAD (coronary atherosclerotic disease) Chronic rheumatic arthritis ([facility] V24, [facility] V28) 12/18/2016 DX:Chronic rheumatic arthrit is ([facility]) Hearing loss 08/18/2010 DX:Hearing loss Hypercholesterolemia 12/18/2016 DX:Hypercho lesterolemia Hypertension 06/15/2018 DX:Hypertension Urinary incontinence 12/18/2016 DX:Urinary incontinence Supraventricular tachycardia ([facility] V24) 06/10/2016 DX:Supraventricular tachycar leno ([facility]) Osteoarthrosis 08/14/2011 DX:Osteoarthrosi s; COMMENT: Comments: of the knee Morbid obesity with BMI of 4 0.0-44.9, adult ([facility] V24, [facility] V28) 01/03/2019 DX:Morbid obesity wit h BMI of 40.0-44.9, adult ([facility]) Diabetes mellitus type 2, un complicated ([facility] V24, [facility] V28) 06/15/2018 DX:Diabetes mellitus type 2 , uncomplicated (HCC) Family History Medical History Relation Name Comments Coronary artery disease Brother Ankylosing spondylitis Daughter Diabetes Daughter Rheum arthritis Daughter Thyroid disease Daughter thyroid canc er, thyroidectomy done Coronary artery disease Father Heart attack Father Other cancer Maternal Grandfather Diabetes Paternal Grandfather Arthritis Son Relation Name Status Comments Brother Alive Daughter Alive Father Maternal Grandfather Maternal Grandmother Mother Paternal Grandfather Paternal Grandmother Son Alive Social History Tobacco Use Types Packs/Day Years Used Date Smoking Tobacco: Former Cigarettes 1.5 40 0 11/02/1954 - 11/02/1994 Smokeless Tobacco: Never Tobacco Cessation:Counseling Given: Not Answered Alcohol Use Standard Drinks/Week Comments No 0 (1 standard drink = 0.6 oz pur e alcohol) Sex and Gender Information Value Date Recorded Sex Assigned at Male 01/05/2025 10:04 AM EST Legal Sex Male 2:03 AM EST Gender Identity Male 01/05/2025 10:04 AM EST Sexual Orientation Straight 01/05/2025 10 :04 AM EST Obstetrics History Last Filed Vital Signs Vital Sign Reading Time Taken Comments Blood Pressure 109/54 08/16/2025 9:50 AM EDT Pulse 77 08/16/2025 9:50 AM EDT Temperature 36.4 C (97.6 F) 08/16/2025 9:50 AM EDT Respiratory Rate 20 03/30/2025 10:10 AM EDT Oxygen Saturation 96% 08/16/2025 9:50 AM EDT Inhaled Oxygen Concentration - - Weight 119 kg (262 lb 9.6 oz) 07/26/2025 10:41 A M EDT Height 185.4 cm (6' 0.99 ) 05/02/2025 2:01 PM ED T Body Mass Index 34.65 05/02/2025 2:01 PM EDT Plan of Treatment Upcoming Encounters Date Type Department Care Team (Late st Contact Info) Description 10/11/2025 11:30 AM EST Office Visit Internal Medicine - [address] [phone] Jaci Coffman NP [address] [place] [phone] 10/17/2025 7:40 AM EST Office Visit [facility] - [address] [facility] [address] [place] [phone] Marj Bell NP [address] [place] [address] [address] [place] [phone] 10/23/2025 1:45 PM EST Office Visit Orthopedic Surgery - [place] [address] [place] [phone] Mars Goff DPM [address] [facility] [address] [place] [address] Health Maintenance Due Date Last Done Comments Diabetes: Annual Retina Eye Exam 1950 Zoster Vaccines (1 of 2) 1959 RSV Immunization Adult Patients (1 - 1-dose 75+ series) 2015 Social Influencers of Health Screening 10/11/2022 Diabetes: Annual Urine Albumin-Creatinine Ratio (uACR) 08/20/2024 08/20/2023 Depression Screening 11/02/2024 10/06/2024 Diabetes: Annual Foot Exam 03/03/2025 03/03/2024 COVID-19 Vaccine ( season) 2025 07/15/2024, 09/22/2022, 10/18/2021, Additional history exists Falls Risk Assessment 10/05/2025 10/05/2024, 024 Medicare Annual Wellness Visit 10/05/2025 10/05/2024 Diabetes: Blood Sugar Control Test (HGBA1C) 01/23/2026 07/26/2025, 03/03/2025, 10/12/2024, Additional history exists Diabetes: Annual GFR (Glomerular Filtration Rate) 07/26/2026 07/26/2025, 03/18/2025, 03/16/2025, Additional history exists Hypertension/CHF/CAD Annual BMP Blood Test 07/26/2026 07/26/2025, 03/18/2025, 03/16/2025, Additional history exists Cholesterol Screening (Lipid Panel) 02/10/2030 02/10/2025, 08/20/2023 DTaP,Tdap,and Td Vaccines (3 - Td or Tdap) 09/12/2030 09/12/2020, 06/07/2012 Pneumococcal Vaccine: 50+ Years Completed 12/16/2017, 11/17/2006 Influenza Vaccine Completed 08/10/2025, , 09/11/2023, Additional history exists HIB Vaccines Aged Out No longer eligi ble based on patient's age to complete this topic HPV Vaccines Aged Out No longer eligi ble based on patient's age to complete this topic Hepatitis A Vaccines Aged Out No long er eligible based on patient's age to complete this topic Hepatitis B Vaccines Aged Out No long er eligible based on patient's age to complete this topic IPV Vaccines Aged Out No longer eligi ble based on patient's age to complete this topic MMR Vaccines Aged Out No longer eligi ble based on patient's age to complete this topic Meningococcal ACWY Vaccine Aged Out N o longer eligible based on patient's age to complete this topic Meningococcal B Vaccine Aged Out No l onger eligible based on patient's age to complete this topic RSV Immunization Patients Under 20 months Aged Out No longer eligible based on patient's age to complete this topic Varicella Vaccines Aged Out No longer eligible based on patient's age to complete this topic Procedures Procedure Name Priority Date/Time Associated Diagnosis Comments EXTERNAL CLINICAL LAB 08/16/2025 SORENSEN URINE CULTURE TUBE Routine 08/11/20 12:57 PM EDT Disease of prostate URINALYSIS WITH REFLEX MICROSCOPIC AND CULTURE Routine 08/11/2025 12:57 PM EDT Disease of prostate URINALYSIS WITH REFLEX MICROSCOPIC AND CULTURE Routine 08/11/2025 12:57 PM EDT Disease of prostate CULTURE URINE Routine 08/11/2025 12:57 PM EDT Disease of prostate HEMOGLOBIN A1C Routine 07/26/2025 11:25 AM EDT Paroxysmal atrial fibrillation (CMS/HCC V24, CMS/HCC V28) Type 2 diabetes mellitus with polyneuropathy (CMS/HCC V24, CMS/HCC V28) ALANINE AMINOTRANSFERASE Routine 07/26/2025 11:25 AM EDT Paroxysmal atrial fibrillation (CMS/HCC V24, CMS/HCC V28) Type 2 diabetes mellitus with polyneuropathy (CMS/HCC V24, CMS/HCC V28) ASPARTATE AMINOTRANSFERASE Routine 07/26/2025 11:25 AM EDT Paroxysmal atrial fibrillation (CMS/HCC V24, CMS/HCC V28) Type 2 diabetes mellitus with polyneuropathy (CMS/HCC V24, CMS/HCC V28) BASIC METABOLIC PANEL Routine 07/26/2025 11:25 AM EDT Paroxysmal atrial fibrillation (CMS/HCC V24, CMS/HCC V28) LIPID PANEL WITH REFLEX TO DIRECT LDL Routine 02/10/2025 3:39 PM EDT Atherosclerosis of yocha dehe coronary artery of [place] de[place] heart without angina pectoris DIABETES FOOT EXAM Routine 03/03/2024 URINE ALBUMIN CREATININE RATIO Routine 08/20/2023 from Last 3 Months or Most Recently Relevant to Health Maintenance Results * External clinical lab (08/16/2025) Provider [facility] LAB BLOOD ORDERABLES Fin al Result * (ABNORMAL) Urinalysis with reflex microscopic and culture (08/11/2025 12:57 PM EDT) Specific [place] Urine 1.010 1.003 - 1.030 LAB URINALYSIS - AUTOMATED METHOD 08/11/2025 4:11 PM EDT [facility] pH, Urine 5.0 5.0 - 8.0 pH LAB URINALYSIS - AUTOMATED METHOD 08/11/2025 4:11 PM T [facility] Leukocytes, Urine Large(A) Negative LAB URINALYSIS - AUTOMATED METHOD 08/11/2025 4:11 PM T [facility] Nitrite, Urine Positive(A) Negative LAB URINALYSIS - AUTOMATED METHOD 08/11/2025 4:11 PM [facility] Protein, Urine Negative <=Trace mg/dL LAB URINALYSIS - AUTOMATED METHOD 08/11/2025 4:11 PM [facility] Glucose, Urine Negative Negative mg/dL LAB URINALYSIS - AUTOMATED METHOD 08/11/2025 4:11 PM [facility] Ketones, Urine Negative Negative mg/dL LAB URINALYSIS - AUTOMATED METHOD 08/11/2025 4:11 PM [facility] Urobilinogen , Urine 0.2 0.2 - 1.0 mg/dL LAB URINALYSIS - AUTOMATED METHOD 08/11/2025 4:11 PM [facility] [facility] Bilirubin, Urine Negative Negative LAB URINALYSIS - AUTOMATED METHOD 08/11/2025 4:11 PM [facility] Blood, Urine Moderate(A) Negative LAB URINALYSIS - AUTOMATED METHOD 08/11/2025 4:11 PM [facility] RBC, Urine 41.0(H) 0 - 4 /HPF LAB URINALYSIS - AUTOMATED METHOD 08/11/2025 4:11 PM [facility] WBC, Urine 241.8(H) 0 - 4 /HPF LAB URINALYSIS - AUTOMATED METHOD 08/11/2025 4:11 PM [facility] Squamous Epithelial, Urine 6 0 - 60 /LPF LAB URINALYSIS - AUTOMATED METHOD 08/11/2025 4:11 PM [facility] Bacteria, Urine Many(A) Negative /HPF LAB URINALYSIS - AUTOMATED METHOD 08/11/2025 4:11 PM [facility] Hyaline Casts, Urine 0.0 0 - 3 /LPF LAB URINALYSIS - AUTOMATED METHOD 08/11/2025 4:11 PM [facility] Urine Urine specimen obtained by clean catch procedure / Unknown Non-blood Collection / Unknown 08/11/2025 12:57 PM EDT 08/11/2025 12:57 PM EDT us Jaci Coffman OUTPATIENT ADMITTING CLERK LAB URINE ORDERABLES Final Resul t Performing Organization Address [facility]/ZIP Co de Phone Number [facility] [address] [place] [address], [place] [phone] * Sorensen urine culture tube (08/11/2025 12:57 PM EDT) Extra Tube Hold for add-ons. 08/11/2025 6:01 PM EDT [facility] Comment:Auto resulted. Urine Urine specimen obtained by clean catch procedure / Unknown Non-blood Collection / Unknown 08/11/2025 12:57 PM EDT 08/11/2025 12:57 PM EDT us Jaci Coffman OUTPATIENT ADMITTING CLERK LAB URINE ORDERABLES Final Resul t Performing Organization Address [facility] de Phone Number [facility] [address] [place] [address], [place] [phone] * (ABNORMAL) Culture urine (08/11/2025 12:57 PM EDT) Culture, Urine >=100,000 CFU/mL Escherichia coli(A) HENRY 08/13/2025 9:50 AM EDT [facility] Urine Urine specimen obtained by clean catch procedure / Unknown Non-blood Collection / Unknown 08/11/2025 12:57 PM EDT 08/11/2025 4:11 PM EDT Narrative Organism Antibiotic Method Susceptibility Escherichia coli Amoxicillin/Clavulanate HENRY <=2 ug/ml: Susceptible Escherichia coli Ampicillin/Sulbactam HENRY <=2 ug/ml: Susceptible Escherichia coli Piperacillin/Tazobactam HENRY <=4 ug/ml: Susceptible Escherichia coli Cefazolin (Urine) HENRY 2 ug/ml: Susceptible Escherichia coli Cefoxitin HENRY <=4 ug/ml: Susceptible Escherichia coli Ceftazidime HENRY <=0.5 ug/ml: Susceptible Escherichia coli Ceftriaxone HENRY <=0.25 ug/ml: Susceptible Escherichia coli Cefepime HENRY <=0.12 ug/ml: Susceptible Escherichia coli Meropenem HENRY <=0.25 ug/ml: Susceptible Escherichia coli Amikacin HENRY 2 ug/ml: Susceptible Escherichia coli Gentamicin HENRY <=1 ug/ml: Susceptible Escherichia coli Ciprofloxacin HENRY <=0.06 ug/ml: Susceptible Escherichia coli Levofloxacin HENRY <=0.12 ug/ml: Susceptible Escherichia coli Nitrofurantoin HENRY <=16 ug/ml: Susceptible Escherichia coli Trimethoprim/Sulfamethoxazole HENRY <=20 ug/ml: Susceptible Jaci Coffman NP LAB MICROBIOLOGY - GENERAL ORDER ENDER Final Result Performing Organization Address [facility]/ZIP Co de Phone Number [facility] [address] [place] [address], * Alanine aminotransferase (07/26/2025 11:25 AM EDT) ALT (SGPT) 34 10 - 60 unit/L LAB CHEMISTRY METHOD 07/26/2025 5:08 PM EDT [facility] Blood Venous blood specimen / Unknown Venipuncture / Unknown 07/26/2025 11:25 AM EDT 07/26/2025 11:25 AM EDT Margo WORKMAN LAB BLOOD ORDERABLES Final Result [facility] [address] [place] [address], [place] [phone] * Aspartate aminotransferase (07/26/2025 11:25 AM EDT) AST (SGOT) 21 10 - 42 unit/L LAB CHEMISTRY METHOD 07/26/2025 5:08 PM EDT [facility] Blood Venous blood specimen / Unknown Venipuncture / Unknown 07/26/2025 11:25 AM EDT 07/26/2025 11:25 AM EDT Margo WORKMAN LAB BLOOD ORDERABLES Final Result [facility] [address] [place] [address], [place] [phone] * (ABNORMAL) Hemoglobin A1c (07/26/2025 11:25 AM EDT) Pathologist [facility] Hemoglobin A1C 6.6(H) <6.5 % LAB CHEMISTRY METHOD 07/26/2025 2:21 PM EDT [facility] Mean Bld Glu Estim. 143 mg/dL LAB CHEMISTRY METHOD 07/26/2025 2:21 PM EDT [facility] Blood Venous blood specimen / Unknown Venipuncture / Unknown 07/26/2025 11:25 AM EDT 07/26/2025 11:25 AM EDT Margo WORKMAN LAB BLOOD ORDERABLES Final Result Performing Organization Address [facility]/ZIP Co de Phone Number [facility] [address] [place] [address], [place] [phone] * (ABNORMAL) Basic metabolic panel (07/26/2025 11:25 AM EDT) Pathologist [facility] Sodium 139 133 - 145 mmol/L LAB CHEMISTRY METHOD 07/26/2025 5:08 PM EDT [facility] Potassium 4.6 3.5 - 5.5 mmol/L LAB CHEMISTRY METHOD 07/26/2025 5:08 PM EDT [facility] Chloride 104 96 - 110 mmol/L LAB CHEMISTRY METHOD 07/26/2025 5:08 PM EDT [facility] CO2 29 21 - 32 mmol/L LAB CHEMISTRY METHOD 07/26/2025 5:08 PM EDT [facility] Anion Gap 6 3 - 11 LAB CHEMISTRY METHOD 07/26/2025 5:08 PM EDT [facility] Glucose 153(H) 70 - 100 mg/dL LAB CHEMISTRY METHOD 07/26/2025 5:08 PM EDT [facility] BUN 42(H) 5 - 25 mg/dL LAB CHEMISTRY METHOD 07/26/2025 5:08 PM [facility] Creatinine 1.73(H) 0.70 - 1.30 mg/dL LAB CHEMISTRY METHOD 07/26[facility]25 5:[facility] eGFR 38(L) >=60 mL/min/1. 73m2 LAB CHEMISTRY METHOD 07/26/2025 5:08 PM [facility] Comment:Calculation based on the Chronic Kidney Disease Epidemiology Collaboration (CKD-EPI) equation refit without adjustment for race. BUN/Creatinine Ratio 24.3 LAB CHEMISTRY METHOD 07/26/2025 5:08 PM [facility] Calcium 9.2 8.5 - 10.5 mg/dL LAB CHEMISTRY METHOD 07/26/2025 5:08 PM [facility] Blood Venous blood specimen / Unknown Venipuncture / Unknown 07/26/2025 11:25 AM EDT 07/26/2025 11:25 AM EDT us Marj Bell OUTPATIENT ADMITTING CLERK LAB BLOOD ORDERABLES Final Resu lt [facility] [address] [place] [address], * (ABNORMAL) Lipid panel with reflex to direct LDL (02/10/2025 3:39 PM EDT) Cholesterol 141 0 - 200 mg/dL LAB CHEMISTRY METHOD 02/10/2025 7:12 PM EDT [facility] Triglycerides 253(H) 0 - 150 mg/dL LAB CHEMISTRY METHOD 02/10/2025 7:12 PM EDT [facility] HDL 44 >=40 mg/dL LAB CHEMISTRY METHOD 02/10/2025 7:12 PM EDT [facility] LDL Calculated 46 0 - 100 mg/dL LAB CHEMISTRY METHOD 02/10/2025 7:12 PM EDT [facility] VLDL Cholesterol Sharath 50.6 mg/dL LAB CHEMISTRY METHOD 02/10/2025 7:12 PM EDT [facility] Non HDL Chol. (LDL+VLDL) 97 <145 mg/dL LAB CHEMISTRY METHOD 02/10/2025 7:12 PM EDT [facility] Chol/HDL Ratio 3.2 0.0 - 4.4 LAB CHEMISTRY METHOD 02/10/2025 7:12 PM EDT [facility] Blood Venous blood specimen / Unknown Venipuncture / Unknown 02/10/2025 3:39 PM EDT 02/10/2025 3:39 PM EDT Marj Bell OUTPATIENT ADMITTING CLERK LAB BLOOD ORDERABLES Final Resu lt [facility] [address] [place] [address], * Diabetes Foot Exam (03/03/2024) [facility] Diabetes: Annual Foot Exam Abstracted Historical Provider HEALTH MAINTENANCE Final Result * Urine Albumin Creatinine Ratio (08/20/2023) [facility] Urine Albumin Creatinine Ratio ABbstracted Historical Provider HEALTH MAINTENANCE Final Result from Last 3 Months or Most Recently Relevant to Health Maintenance Insurance MEDICARE [facility] Advance Directives * Full Code - Default (Latest Code Status on File) Date Activated Date Inactivated Comments 03/17/2025 6:35 AM 03/18/2025 2:38 PM This is orde r is used when code status has not been discussed with the patient, or code status is otherwise unknown/unconfirmed To update the patient's code status, place a code status order. Do not modify or discontinue any currently active code status orders. Care Teams Outsole Paraffiner Relationship Specialty Start Date End Date Ashley Hughes MD [address] [facility] [place] [address] PCP - General Internal Medicine 06/22/25
--- OUTSIDE RECORDS SUMMARY | 2025-09-26 17:47 | XMS_ITS | Encounter Summary ---
Author Organization [facility] Address [address] [place] [address] Care Team Providers Care Site Acquisition Specialist Name Role Phone Ashley Hughes MD Primary Care Provider [phone] Reason for Visit * Reason Onset Date Comments Request For Order(s) 08/30/2025 Gala dominguez [id number] Encounter Details Date Type Department Care Team (Late Contact Info) Description 08/30/2025 Telephone Internal Medicine - [place] [address] [place], [place] [phone] Ashley Hughes MD [address] [place] [address] Social History Tobacco Use Types Packs/Day Years [...] of Assessment Author No 03/17/2025 6:20 AM EDT Aline Jeffers RN * Are you blind or do you have serious difficulty seeing, even when wearing glasses? Answer Date of Assessment Author No 03/17/2025 6:20 AM EDT Aline [...] Aline Jeffers RN documented in this encounter Progress Notes * Symone Rowe MA - 09/22/2025 8:48 AM EST Faxed forms backed * Alysha Curtis - 09/07/2025 10:37 AM EST 2nd request * Nani Albarran - 08/30/2025 3:00 PM EDT faxed order from Gala garcia [id number] Placed in nurse's bin documented in this encounter Plan of Treatment Upcoming Encounters Date Type Department Care Team (Late st Contact Info) Description 10/11/2025 11:30 AM EST Office Visit Internal Medicine - [address] [address] Jaci Coffman NP [address] [place] [address] 10/17/2025 7:40 AM EST Office Visit [facility] - [facility] [address] 300 [facility] 154 [place] [address] Marj Bell, NEEL [address] [place] [address] Dr [address] [place] [phone] 10/23/2025 1:45 PM EST Office Visit Orthopedic Surgery - [place] [address] [facility] 250 [place] [phone] Mars Goff, DPLay 175 [facility] 250 [place] [address] documented as of this encounter Visit Diagnoses Not on filedocumented in this encounter Additional Health Concerns Assessment Noted Time PHQ-9 Depression Total Score: 1 10/06/20 24 11:35 AM EST A fall risk assessment has been complete d for the patient 10/05/2024 4:52 PM EST documented as of this encounter Care Teams Site Acquisition Specialist Relationship Specialty Start Date End Date Ashley Hughes MD [address] [place] [address] PCP - General Internal Medicine 06/22/25 documented as of this encounter
--- OUTSIDE RECORDS SUMMARY | 2025-09-26 17:47 | XMS_ITS | Encounter Summary ---
Author Organization [facility] Address [address] [place] [address] Care Team Providers Care Conductor Sleeping Car Name Role Phone Ashley Hughes MD Primary Care Provider [phone] Encounter Details Date Type Department Care Team (Late st Contact Info) Description 08/11/2025 Results Follow-Up Internal Medicine - [facility] [address] [place] [address] Allison Fagan MA Social History Tobacco Use [...] Aline Jeffers RN documented in this encounter Ordered Prescriptions Prescription Sig Dispense Quantity Refills Last Filled Start Date End Date amoxicillin-clavul anate (AUGMENTIN) 875-125 mg per tablet Take 1 tablet by mouth 2 (two) times a day for 7 days. 14 tablet 08/11/2025 08/16/2025 documented in this encounter Plan of Treatment Upcoming Encounters Date Type Department Care Team (Late st Contact Info) Description 10/11/2025 11:30 AM EST Office Visit Internal Medicine - [address] [address] Jaci Coffman NP 305 [place] [address] 10/17/2025 7:40 AM EST Office Visit [facility] - [facility] 154 300 [facility] 154 [place] [phone] Marj Bell NP [address] [place] [address] Dr Ambriz [address] [place] [address] 10/23/2025 1:45 PM EST Office Visit Orthopedic Surgery - [place] 250 175 [facility] 250 [place] [phone] Mars Goff, MADHAVI [address] [address] documented as of this encounter Visit Diagnoses Not on filedocumented in this encounter Additional Health Concerns Assessment Noted Time PHQ-9 Depression Total Score: 1 10/06/20 24 11:35 AM EST A fall risk assessment has been complete d for the patient 10/05/2024 4:52 PM EST documented as of this encounter Care Teams Conductor Sleeping Car Relationship Specialty Start Date End Date Ashley Hughes MD [address] [place] [address] PCP - General Internal Medicine 06/22/25 documented as of this encounter
--- OUTSIDE RECORDS SUMMARY | 2025-09-26 17:47 | XMS_ITS | Encounter Summary ---
Author Organization [facility] Address [address] [place] [address] Care Team Providers Care Social Worker Clinical Name Role Phone Ashley Hughes MD Primary Care Provider [phone] Reason for Visit * Reason Comments HOME HEALTH CERT Encounter Details Date Type Department Care Team (Late st Contact Info) Description 09/22/2025 Billing Patient Not Present Internal Medicine - [facility] [address] [place] [address] Geoff Kathleen PA [address] [place] [address] Diastolic congestive heart failure, unspecified HF chronicity (CMS/HCC V24, CMS/HCC V28) (Primary Dx); Anemia, unspecified type; Atrial fibrillation, unspecified type (CMS/HCC V24, CMS/HCC V28); Benign prostatic hyperplasia without lower urinary tract symptoms; Hearing loss, unspecified hearing loss type, unspecified laterality; Old myocardial infarction; halfway (current) use of insulin (CMS/HCC V24, CMS/HCC V28) Social History Tobacco Use Types Packs/Day Years [...] of Assessment Author Yes 03/17/2025 6:20 AM Aline Gordillo RN * Do you have serious difficulty dressing or bathing? Answer Date of Assessment Author Yes 03/17/2025 6:20 AM Aline Gordillo RN * Because of a physical, mental, or emotional condition, do you have serious difficulty doing errandsalone such as visiting the doctor? Answer Date of Assessment Author Yes 03/17/2025 6:20 AM Aline Gordillo RN documented as of this encounter Mental Status * Because of a physical, mental, or emotional condition, do you have serious difficulty concentrating, remembering, or making decisions? (5 years old or older) Answer Entry Date Author No 03/17/2025 6:20 AM Aline Gordillo RN documented in this encounter Progress Notes * Bernadette Espinosa MA - 09/22/2025 2:44 PM EST Start of Care Date: 08/08/25 Date of certification period: 08/08/25-10/06/25 Date of service = signature date 09/21/25 Hospice patient: NO Home Care [facility] ORDER [id number] Recertification Code [id number] Initial Code G0180 documented in this encounter Plan of Treatment Upcoming Encounters Date Type Department Care Team (Late st Contact Info) Description 10/11/2025 11:30 AM EST [facility] [address] [place], [place] [address]ial [facility] ALVAREZ Richter [phone] Jaci Coffman, NEEL 305 [place] [address] 10/17/2025 7:40 AM EST Office Visit [facility] - [facility] 154 300 [facility] 154 [place] [phone] Marj Bell, NEEL [address] [place] [address] [address] [place] [phone] 10/23/2025 1:45 PM EST Office Visit Orthopedic Surgery - [place] 250 175 [facility] 250 [place] [phone] Mars Goff, DPM 175 [facility] 250 [place] [address] documented as of this encounter Visit Diagnoses Diagnosis Diastolic congestive heart failure, unspecified HF chronicity (CMS/[facility] V24, [facility] V28)- Primary Anemia, unspecified type Atrial fibrillation, unspecified type ([facility] V24, [facility] V28) Benign prostatic hyperplasia without lower urinary tract symptoms Hearing loss, unspecified hearing loss type, unspecified laterality Old myocardial infarction intermediate designer (current) use of insulin ([facility] V24, [facility] V28) documented in this encounter Additional Health Concerns Assessment Noted Time PHQ-9 Depression Total Score: 1 10/06/20 11:35 AM EST A fall risk assessment has been complete d for the patient 10/05/2024 4:52 PM EST documented as of this encounter Care Teams Social Worker Clinical Relationship Specialty Start Date End Date Ashley Hughes MD [address] [place], [place] PCP - General Internal Medicine 06/22/25 documented as of this encounter
--- OUTSIDE RECORDS SUMMARY | 2025-09-26 17:47 | XMS_ITS | Encounter Summary ---
Author Organization [facility] Address [address] [place] [address] Care Team Providers Care Wildlife Biologist Name Role Phone Ashley Hughes MD Primary Care Provider [phone] Reason for Visit * Reason Onset Date Comments request for orders 09/22/2025 [facility] 08/30/25 Encounter Details Date Type Department Care Team (Late st Contact Info) Description 09/22/2025 Telephone Internal Medicine - [facility] [address] [place], [place] [phone] Ashley Hughes MD [address] [place] [address] Social History Tobacco Use Types Packs/Day Years [...] Notes * Symone Rowe MA - 09/22/2025 2:18 PM EST Informed Mavis Beatty is on a leave of absence and will not be back for 3 weeks. * Alejandra Bernal - 09/22/2025 1:51 PM EST From encounter on 08/30/25. Mavis from [facility] confirmed they received the fax. Mavis said it was signed by the wrong provider, and is requesting completion and signature be done by NEEL Coffman, Informed SURVEY CAD TECHNICIAN is out on leave. Mavis stated she will make a note but still requesting form be completed by NEEL Coffman. documented in this encounter Plan of Treatment Upcoming Encounters Date Type Department Care Team (Late st Contact Info) Description 10/11/2025 11:30 AM EST Office Visit Internal Medicine - [address] [place] [address] Jaci Coffman NP [address] [place] [address] [place] [address] 10/17/2025 7:40 AM EST Office Visit [facility] - [facility] 154 300 [facility] 154 [place] [address] Marj Bell, NEEL [address] [place] [address] Dr [address] [place] [phone] 10/23/2025 1:45 PM EST Office Visit Orthopedic Surgery - [place] 250 175 [facility] 250 [place] [phone] Mars Goff, DPLay 175 [facility] 250 [place] [address] documented as of this encounter Visit Diagnoses Not on filedocumented in this encounter Additional Health Concerns Assessment Noted Time PHQ-9 Depression Total Score: 1 10/06/20 24 11:35 AM EST A fall risk assessment has been complete d for the patient 10/05/2024 4:52 PM EST documented as of this encounter Care Teams Wildlife Biologist Relationship Specialty Start Date End Date Ashley Hughes MD [address] [place] [address] PCP - General Internal Medicine 06/22/25 documented as of this encounter
--- OUTSIDE RECORDS SUMMARY | 2025-10-05 19:00 | XMS_ITS | Clinical Summary ---
Author Organization Unknown Care Team Providers Care Managing Supervisor Name Role Phone HAILEY END MAKER, NARENDRA Unavailable Unavailable RANDAL RN, SCOTTIE Unavailable Unavailable BERTHA PT, MICHELL Unavailable Unavailable PERCY ISIDRON, KRIS Unavailable Unavailable Payers Payer Name Policy Type Policy Number Effective Date Expira tion Date MEDICARE - [place] [id number] Problems Condition Name Condition Details Condition Category Status Onset Date Resolution Date Last Treatment Date Treating Clinician Comments HYP HRT AND CHR KDNY DIS W HRT FAIL AND STG 1-4/UNSP CHR KDNY Active 11-02 00:00: 00 UNSPECIFIED DIASTOLIC (CONGESTIVE) HEART FAILURE Active 11-02 00:00: 00 TYPE 2 DIABETES MELLITUS W DIABETIC CHRONIC KIDNEY DISEASE Active 11-02 00:00: 00 CHRONIC KIDNEY DISEASE, STAGE 4 (SEVERE) Active 11-02 00:00: 00 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 11-02 00:00: 00 RHEUMATOID ARTHRITIS, UNSPECIFIED Active 11-02 00:00: 00 ATHSCL HEART DISEASE OF [place] CORONARY ARTERY W/O ANG PCTRS Active 11-02 00:00: 00 UNSPECIFIED ATRIAL FIBRILLATION Active 11-02 00:00: 00 UNSPECIFIED OSTEOARTHRIT IS, UNSPECIFIED SITE Active 11-02 00:00: 00 PURE HYPERCHOLEST EROLEMIA, UNSPECIFIED Active 11-02 00:00: 00 UNSPECIFIED HEARING LOSS, UNSPECIFIED EAR Active 11-02 00:00: 00 BENIGN PROSTATIC HYPERPLASIA WITHOUT LOWER URINRY TRACT SYMP Active 11-02 00:00: 00 GASTRO-ESOPH AGEAL REFLUX DISEASE WITHOUT ESOPHAGITIS Active 11-02 00:00: 00 OLD MYOCARDIAL INFARCTION Active 11-02 00:00: 00 CHRONIC OBSTRUCTIVE PULMONARY DISEASE, UNSPECIFIED Active 11-02 00:00: 00 SUPRAVENTRIC ULAR TACHYCARDIA, UNSPECIFIED Active 11-02 00:00: 00 MORBID (SEVERE) OBESITY DUE TO EXCESS CALORIES Active 11-02 00:00: 00 BODY MASS INDEX [BMI] 36.0-36.9, ADULT Active 11-02 00:00: 00 ENCOUNTER FOR THERAPEUTIC DRUG LEVEL MONITORING Active 11-02 00:00: 00 JAIL (CURRENT) USE OF ANTICOAGULAN TS Active 11-02 00:00: 00 JAIL (CURRENT) USE OF NON-STEROIDA L NON-INFLAM (NSAID) Active 11-02 00:00: 00 JAIL (CURRENT) USE OF INSULIN Active 11-02 00:00: 00 PERSONAL HISTORY OF NICOTINE DEPENDENCE Active 11-02 00:00: 00 PERSONAL HISTORY OF OTHER VENOUS THROMBOSIS AND EMBOLISM Active 11-02 00:00: 00 CATARACT EXTRACTION STATUS, LEFT EYE Active 11-02 00:00: 00 PRESENCE OF CORONARY ANGIOPLASTY IMPLANT AND GRAFT Active 11-02 00:00: 00 Problems related to health literacy Active 11-02 00:00: 00 Allergies, Adverse Reactions, Alerts Allergy Name Allergy Type Status Severity Reaction(s) Onset Date Inactive Date Treating Clinician Comments NKA Propensity to adverse reactions Active 2025-08 21:10:0 7 Medications Ordered Medication Name Filled Medication Name Start Date Stop Date Current Medication? Ordering Clinician Indication Dosage Frequency Signature (SIG) Comments Components gabapentin 100 mg capsule 03-18 00:00: 00 07-12 23:59 :00 No [id number] 1 capsule 2 TIMES DAILY 1 capsule 2 TIMES DAILY (route: oral) Med Classific ation: Central Nervous System Agents Humira(CF) Pen 40 mg/0.4 mL subcutaneou s kit 03-13 00:00: 00 07-12 23:59 :00 No [id number] 40 mg DIRECTED 40 mg DIRECTED (route: subcutaneo us) Med Classific ation: Analgesic , Anti-infl ammatory or Antipyret ic acetaminoph en ER 650 mg tablet,exte nded release 03-25 00:00: 00 07-12 23:59 :00 No [id number] 1 tablet NEEDED 1 tablet NEEDED (route: oral) Med Classific ation: Analgesic , Anti-infl ammatory or Antipyret ic atorvastati n 80 mg tablet 03-25 00:00: 00 07-12 23:59 :00 No [id number] 1 tablet DAILY 1 tablet DAILY (route: oral) Med Classific ation: Cardiovas cular Therapy Agents folic acid 1 mg tablet 03-25 00:00: 00 07-12 23:59 :00 No [id number] 1 tablet DAILY 1 tablet DAILY (route: oral) Med Classific ation: Electroly te Balance-N utritiona l Products Lantus Solostar U-100 Insulin 100 unit/mL (3 mL) subcutane s pen 03-25 00:00: 00 04-13 23:59 :00 No [id number] 80 unit BEDTIME 80 unit BEDTIME (route: subcutaneo ) Med Classific ation: Endocrine Lasix 20 mg tablet 03-25 00:00: 00 07-12 23:59 :00 No [id number] 2 tablet DAILY 2 tablet DAILY (route: oral) Med Classific ation: Cardiovas cular Therapy Agents lisinopril 10 mg tablet 03-25 00:00: 00 07-12 23:59 :00 No [id number] 1 tablet DAILY 1 tablet DAILY (route: oral) Med Classific ation: Cardiovas cular Therapy Agents metoprolol succinate ER 100 mg tablet,exte nded release 24 hr 03-25 00:00: 00 07-12 23:59 :00 No [id number] 1.5 tablet DAILY 1.5 tablet DAILY (route: oral) Med Classific ation: Cardiovas cular Therapy Agents Nitrostat 0.4 mg sublingual tablet 03-25 00:00: 00 07-12 23:59 :00 No [id number] 1 tablet NEEDED 1 tablet NEEDED (route: sublingual ) Med Classific ation: Cardiovas cular Therapy Agents tamsulosin 0.4 mg capsule 03-25 00:00: 00 07-12 23:59 :00 No [id number] 1 capsule DAILY 1 capsule DAILY (route: oral) Med Classific ation: Genitouri nary Therapy Xarelto DVT-PE Treatment 30-Day Starter 15 mg(42)-20 mg(9) tablet pack 03-25 00:00: 00 07-12 23:59 :00 No [id number] Per instruc tions DAILY Per instructio ns DAILY (route: oral) Med Classific ation: Hematolog ical Agents Lantus Solostar U-100 Insulin 100 unit/mL (3 mL) subcutaneou s pen 04-13 00:00: 00 07-12 23:59 :00 No [id number] 70 unit BEDTIME 70 unit BEDTIME (route: subcutaneo us) Med Classific ation: Endocrine atorvastati n 80 mg tablet 2024-11 00:00: 00 Yes [id number] 1 tablet DAILY 1 tablet DAILY (route: oral) Med Classific ation: Cardiovas cular Therapy Agents Centrum Men 8 mg iron-200 mcg-600 mcg tablet 2024-11 00:00: 00 Yes [id number] 1 tablet DAILY 1 tablet DAILY (route: oral) Med Classific ation: Electroly te Balance-N utritiona l Products folic acid 1 mg tablet 2024-11 00:00: 00 Yes [id number] 1 tablet DAILY 1 tablet DAILY (route: oral) Med Classific ation: Electroly te Balance-N utritiona l Products furosemide 20 mg tablet 2024-11 00:00: 00 Yes [id number] 2 tablet DAILY 2 tablet DAILY (route: oral) Med Classific ation: Cardiovas cular Therapy Agents Humira Pen 40 mg/0.8 mL subcutaneou s kit 2024-11 00:00: 00 Yes [id number] 1 syringe EVERY OTHER WEEK 1 syringe EVERY OTHER WEEK (route: subcutaneo us) Med Classific ation: Analgesic , Anti-infl ammatory or Antipyret ic Lantus U-100 Insulin 100 unit/mL subcutaneou s solution 2024-11 00:00: 00 Yes [id number] 54 unit DAILY 54 unit DAILY (route: subcutaneo us) Med Classific ation: Endocrine lisinopril 10 mg tablet 2024-11 00:00: 00 Yes [id number] 1 tablet DAILY 1 tablet DAILY (route: oral) Med Classific ation: Cardiovas cular Therapy Agents meloxicam 15 mg tablet 2024-11 00:00: 00 09-06 23:59 :00 No [id number] 1 tablet DAILY 1 tablet DAILY (route: oral) Med Classific ation: Analgesic , Anti-infl ammatory or Antipyret ic metoprolol tartrate 75 mg tablet 2024-11 00:00: 00 Yes [id number] 1 tablet DAILY 1 tablet DAILY (route: oral) Med Classific ation: Cardiovas cular Therapy Agents nitroglycer in 0.3 mg sublingual tablet 2024-11 00:00: 00 Yes [id number] 1 tablet NEEDED 1 tablet NEEDED (route: sublingual ) Med Classific ation: Cardiovas cular Therapy Agents tamsulosin 0.4 mg capsule 2024-11 00:00: 00 Yes [id number] 1 capsule DAILY 1 capsule DAILY (route: oral) Med Classific ation: Genitouri nary Therapy Tylenol Arthritis Pain 650 mg tablet,exte nded release 2024-11 00:00: 00 Yes [id number] 2 tablet DAILY 2 tablet DAILY (route: oral) Med Classific ation: Analgesic , Anti-infl ammatory or Antipyret ic Xarelto 15 mg tablet 2024-11 00:00: 00 Yes [id number] 1 tablet DAILY 1 tablet DAILY (route: oral) Med Classific ation: Hematolog ical Agents amoxicillin 875 mg-potassiu m clavulanate 125 mg tablet 2024-11 00:00: 00 08-23 23:59 :00 No [id number] 1 tablet 2 TIMES DAILY 1 tablet 2 TIMES DAILY (route: oral) Med Classific ation: Anti-Infe ctive Agents triamcinolo ne acetonide 0.1 % lotion 2024-11 0-15 00:00: 00 08-23 23:59 :00 No [id number] Per instruc tions 2 TIMES DAILY Per instructio ns 2 TIMES DAILY (route: topical) Med Classific ation: Dermatolo gical Immunizations Ordered Immunization Name Filled Immunization Name Date Status Comments Refusal Reason COVID-19, COVID-19 2025-04-25 00:00:00 INFLUENZA, TIV (INACTIVATED) 2024-12-19 00:00:00 PNEUMOCOCCAL (PPV), PPV 2023-08-17 00:00:00 Vital Signs Vital Name Observation Time Observation Value Commen ts Temperature 2025-09-20 10:55:00.000 97.9 [degF] Temperature 2025-09-14 11:34:00.000 98.1 [degF] Temperature 2025-09-08 11:25:00.000 97.7 [degF] Temperature 2025-09-06 12:02:00.000 97.5 [degF] Temperature 2025-09-05 12:44:00.000 97.4 [degF] Temperature 2025-09-01 16:33:00.000 98.9 [degF] Temperature 2025-08-30 11:17:00.000 97.6 [degF] Temperature 2025-08-29 12:36:00.000 97.7 [degF] Temperature 2025-08-25 12:35:00.000 97.2 [degF] Temperature 2025-08-23 12:37:00.000 97.3 [degF] Temperature 2025-08-23 11:35:00.000 97.9 [degF] Temperature 2025-08-18 12:39:00.000 97.5 [degF] Temperature 2025-08-18 09:45:00.000 98.1 [degF] Temperature 2025-08-15 14:04:00.000 97.3 [degF] Temperature 2025-08-11 12:11:00.000 97.8 [degF] Temperature 2025-08-08 11:52:00.000 98.1 [degF] BMI (%) 2025-08-08 11:52:00.000 35 kg/m2 Height 2025-08-08 11:52:00.000 73 [in_us] Pulse 2025-09-20 10:55:00.000 96 /min Pulse 2025-09-14 11:34:00.000 88 /min Pulse 2025-09-08 11:25:00.000 71 /min Pulse 2025-09-06 12:02:00.000 68 /min Pulse 2025-09-05 12:44:00.000 79 /min Pulse 2025-09-01 16:33:00.000 97 /min Pulse 2025-08-30 11:17:00.000 62 /min Pulse 2025-08-29 12:36:00.000 96 /min Pulse 2025-08-25 12:35:00.000 96 /min Pulse 2025-08-23 12:37:00.000 86 /min Pulse 2025-08-23 11:35:00.000 72 /min Pulse 2025-08-18 12:39:00.000 71 /min Pulse 2025-08-18 09:45:00.000 60 /min Pulse 2025-08-15 14:04:00.000 72 /min Pulse 2025-08-11 12:11:00.000 88 /min Pulse 2025-08-08 11:52:00.000 56 /min O2 Saturation (%) 2025-09-20 10:55:00.000 97 % O2 Saturation (%) 2025-09-14 11:34:00.000 98 % O2 Saturation (%) 2025-09-08 11:25:00.000 98 % O2 Saturation (%) 2025-09-06 12:02:00.000 95 % O2 Saturation (%) 2025-09-05 12:44:00.000 97 % O2 Saturation (%) 2025-09-01 16:33:00.000 99 % O2 Saturation (%) 2025-08-30 11:17:00.000 99 % O2 Saturation (%) 2025-08-25 12:35:00.000 99 % O2 Saturation (%) 2025-08-23 12:37:00.000 98 % O2 Saturation (%) 2025-08-23 11:35:00.000 96 % O2 Saturation (%) 2025-08-18 12:39:00.000 99 % O2 Saturation (%) 2025-08-18 09:45:00.000 96 % O2 Saturation (%) 2025-08-15 14:04:00.000 98 % O2 Saturation (%) 2025-08-11 12:11:00.000 96 % O2 Saturation (%) 2025-08-08 11:52:00.000 97 % Respirations 2025-09-20 10:55:00.000 20 /min Respirations 2025-09-14 11:34:00.000 18 /min Respirations 2025-09-08 11:25:00.000 18 /min Respirations 2025-09-06 12:02:00.000 20 /min Respirations 2025-09-05 12:44:00.000 18 /min Respirations 2025-09-01 16:33:00.000 18 /min Respirations 2025-08-30 11:17:00.000 18 /min Respirations 2025-08-29 12:36:00.000 18 /min Respirations 2025-08-25 12:35:00.000 18 /min Respirations 2025-08-23 12:37:00.000 18 /min Respirations 2025-08-23 11:35:00.000 20 /min Respirations 2025-08-18 12:39:00.000 18 /min Respirations 2025-08-18 09:45:00.000 18 /min Respirations 2025-08-15 14:04:00.000 18 /min Respirations 2025-08-11 12:11:00.000 20 /min Respirations 2025-08-08 11:52:00.000 20 /min Weight (lbs) 2025-09-20 10:55:00.000 267 [lb_av] Weight (lbs) 2025-09-14 11:34:00.000 267 [lb_av] Weight (lbs) 2025-09-08 11:25:00.000 268 [lb_av] Weight (lbs) 2025-09-06 12:02:00.000 268 [lb_av] Weight (lbs) 2025-09-05 12:44:00.000 168 [lb_av] Weight (lbs) 2025-09-01 16:33:00.000 267 [lb_av] Weight (lbs) 2025-08-30 11:17:00.000 264 [lb_av] Weight (lbs) 2025-08-29 12:36:00.000 266 [lb_av] Weight (lbs) 2025-08-25 12:35:00.000 269.8 [lb_av] Weight (lbs) 2025-08-23 12:37:00.000 264 [lb_av] Weight (lbs) 2025-08-23 11:35:00.000 264 [lb_av] Weight (lbs) 2025-08-18 12:39:00.000 267 [lb_av] Weight (lbs) 2025-08-18 09:51:00.000 267 [lb_av] Weight (lbs) 2025-08-11 12:11:00.000 263 [lb_av] Weight (lbs) 2025-08-08 11:52:00.000 267 [lb_av] Systolic Blood Pressure 2025-09-20 10:55:00.000 142 mm [Hg] Systolic Blood Pressure 2025-09-14 11:34:00.000 136 mm [Hg] Systolic Blood Pressure 2025-09-08 11:25:00.000 141 mm [Hg] Systolic Blood Pressure 2025-09-06 12:02:00.000 130 mm [Hg] Systolic Blood Pressure 2025-09-05 12:44:00.000 145 mm [Hg] Systolic Blood Pressure 2025-09-01 16:33:00.000 136 mm [Hg] Systolic Blood Pressure 2025-08-30 11:17:00.000 120 mm [Hg] Systolic Blood Pressure 2025-08-29 12:36:00.000 171 mm [Hg] Systolic Blood Pressure 2025-08-25 12:35:00.000 134 mm [Hg] Systolic Blood Pressure 2025-08-23 12:37:00.000 138 mm [Hg] Systolic Blood Pressure 2025-08-23 11:35:00.000 146 mm [Hg] Systolic Blood Pressure 2025-08-18 12:39:00.000 124 mm [Hg] Systolic Blood Pressure 2025-08-18 09:45:00.000 137 mm [Hg] Systolic Blood Pressure 2025-08-15 14:04:00.000 130 mm [Hg] Systolic Blood Pressure 2025-08-11 12:11:00.000 118 mm [Hg] Systolic Blood Pressure 2025-08-08 11:52:00.000 120 mm [Hg] Diastolic Blood Pressure 2025-09-20 10:55:00.000 70 mm [Hg] Diastolic Blood Pressure 2025-09-14 11:34:00.000 70 mm [Hg] Diastolic Blood Pressure 2025-09-08 11:25:00.000 78 mm [Hg] Diastolic Blood Pressure 2025-09-06 12:02:00.000 80 mm [Hg] Diastolic Blood Pressure 2025-09-05 12:44:00.000 75 mm [Hg] Diastolic Blood Pressure 2025-09-01 16:33:00.000 72 mm [Hg] Diastolic Blood Pressure 2025-08-30 11:17:00.000 57 mm [Hg] Diastolic Blood Pressure 2025-08-29 12:36:00.000 83 mm [Hg] Diastolic Blood Pressure 2025-08-25 12:35:00.000 74 mm [Hg] Diastolic Blood Pressure 2025-08-23 12:37:00.000 78 mm [Hg] Diastolic Blood Pressure 2025-08-23 11:35:00.000 70 mm [Hg] Diastolic Blood Pressure 2025-08-18 12:39:00.000 62 mm [Hg] Diastolic Blood Pressure 2025-08-18 09:45:00.000 80 mm [Hg] Diastolic Blood Pressure 2025-08-15 14:04:00.000 64 mm [Hg] Diastolic Blood Pressure 2025-08-11 12:11:00.000 70 mm [Hg] Diastolic Blood Pressure 2025-08-08 11:52:00.000 70 mm [Hg] Plan of Treatment Planned Activity Planned Date Details Comments Future Scheduled Test SKILLED NU RSE TO EVALUATE PATIENT, IDENTIFY PRIMARY AND CO-MORBID CONDITIONS CODED PER CODING GUIDELINES, AND DEVELOP PATIENT SPECIFIC PLAN OF CARE THAT INCLUDES PATIENT GOAL FOR HOME HEALTH. [code = SKILLED NURSE TO EVALUATE PATIENT, IDENTIFY PRIMARY AND CO-MORBID CONDITIONS CODED PER CODING GUIDELINES, AND DEVELOP PATIENT SPECIFIC PLAN OF CARE THAT INCLUDES PATIENT GOAL FOR HOME HEALTH.] Future Scheduled Test SKILLED NU RSE TO PROVIDE TEACHING/REINFORCEMENT RELATED TO URINARY INCONTINENCE. [code = SKILLED NURSE TO PROVIDE TEACHING/REINFORCEMENT RELATED TO URINARY INCONTINENCE.] Future Scheduled Test SKILLED NU RSE MAY COLLECT URINE SAMPLE FOR URINE REAGENT STRIP TESTING AND/OR URINALYSIS WITH C S 1-3 PRN IF INDICATED FOR SIGNS AND SYMPTOMS OF UTI. IF REAGENT STRIP TEST IS POSITIVE FOR UTI, SKILLED NURSE TO TAKE URINE SAMPLE TO LAB FOR URINE C S AND REPORT RESULTS TO PHYSICIAN. [code = SKILLED NURSE MAY COLLECT URINE SAMPLE FOR URINE REAGENT STRIP TESTING AND/OR URINALYSIS WITH C S 1-3 PRN IF INDICATED FOR SIGNS AND SYMPTOMS OF UTI. IF REAGENT STRIP TEST IS POSITIVE FOR UTI, SKILLED NURSE TO TAKE URINE SAMPLE TO LAB FOR URINE C S AND REPORT RESULTS TO PHYSICIAN.] Future Scheduled Test SKILLED NU RSE FOR O/A, TEACHING, AND MANAGEMENT OF HLD, CAD W/AZ, SV TACHYCARDIA. [code = SKILLED NURSE FOR O/A, TEACHING, AND MANAGEMENT OF HLD, CAD W/AZ, SV TACHYCARDIA.] Future Scheduled Test SKILLED NU RSE FOR O/A, TEACHING RELATED TO GERD FOR EARLY IDENTIFICATION OF EXACERBATION OF DISEASE PROCESS. [code = SKILLED NURSE FOR O/A, TEACHING RELATED TO GERD FOR EARLY IDENTIFICATION OF EXACERBATION OF DISEASE PROCESS.] Future Scheduled Test SKILLED NU RSE FOR O/A, TEACHING AND MANAGEMENT OF CKD, BPH FOR EARLY IDENTIFICATION OF EXACERBATION OF DISEASE PROCESS [code = SKILLED NURSE FOR O/A, TEACHING AND MANAGEMENT OF CKD, BPH FOR EARLY IDENTIFICATION OF EXACERBATION OF DISEASE PROCESS] Future Scheduled Test SKILLED NU RSE TO OBTAIN BLOOD SUGAR PRN FOR SIGNS AND SYMPTOMS OF HYPO/HYPERGLYCEMIA. IF OBTAINED BY PATIENT/CAREGIVER PRIOR TO VISIT AND PATIENT IS NOT SYMPTOMATIC, SKILLED NURSE TO RECORD READING FROM PATIENT LOG. [code = SKILLED NURSE TO OBTAIN BLOOD SUGAR PRN FOR SIGNS AND SYMPTOMS OF HYPO/HYPERGLYCEMIA. IF OBTAINED BY PATIENT/CAREGIVER PRIOR TO VISIT AND PATIENT IS NOT SYMPTOMATIC, SKILLED NURSE TO RECORD READING FROM PATIENT LOG.] Future Scheduled Test SKILLED NU RSE FOR O/A AND SKILLED TEACHING IN MANAGEMENT OF LLE DVT DISEASE. [code = SKILLED NURSE FOR O/A AND SKILLED TEACHING IN MANAGEMENT OF LLE DVT DISEASE.] Future Scheduled Test PHYSICAL T HERAPIST TO EVALUATE PATIENT FOR STRENGTHENING AND ENDURANCE [code = PHYSICAL THERAPIST TO EVALUATE PATIENT FOR STRENGTHENING AND ENDURANCE] Future Scheduled Test SKILLED NU RSE TO INSTRUCT PATIENT/CAREGIVER ON SIGNS AND SYMPTOMS, RISK FACTORS, COMPLICATIONS, AND MANAGEMENT OF ATRIAL FIBRILLATION. [code = SKILLED NURSE TO INSTRUCT PATIENT/CAREGIVER ON SIGNS AND SYMPTOMS, RISK FACTORS, COMPLICATIONS, AND MANAGEMENT OF ATRIAL FIBRILLATION.] Future Scheduled Test SKILLED NU RSE TO PROVIDE TEACHING ON SIGNS AND SYMPTOMS AND MANAGEMENT OF HYPERTENSION. [code = SKILLED NURSE TO PROVIDE TEACHING ON SIGNS AND SYMPTOMS AND MANAGEMENT OF HYPERTENSION.] Future Scheduled Test SKILLED NU RSE TO INSTRUCT PATIENT/CAREGIVER ON COPD TO INCLUDE TEACHING AND SELF-MANAGEMENT RELATED TO COPD DISEASE PROCESS, SIGNS AND SYMPTOMS, AND COMPLICATIONS. [code = SKILLED NURSE TO INSTRUCT PATIENT/CAREGIVER ON COPD TO INCLUDE TEACHING AND SELF-MANAGEMENT RELATED TO COPD DISEASE PROCESS, SIGNS AND SYMPTOMS, AND COMPLICATIONS.] Future Scheduled Test SKILLED NU RSE FOR O/A, TEACHING AND SELF-MANAGEMENT RELATED TO HEART FAILURE. INSTRUCT PATIENT/CAREGIVER ON SIGNS AND SYMPTOMS OF EXACERBATION TO REPORT AND IMPORTANCE OF OBTAINING AND RECORDING DAILY WEIGHT AND/OR MEASUREMENTS. SN OR TRAINED PATIENT/CAREGIVER TO OBTAIN WEIGHT DAILY AND WEIGHT GAIN OF 2 LBS OVERNIGHT OR 5 LBS IN 1 WEEK TO BE REPORTED TO PHYSICIAN/PROVIDER. IF UNABLE TO WEIGH PATIENT, SN OR TRAINED PATIENT/CAREGIVER TO OBTAIN MEASUREMENT OF CALF IN CM DAILY AND REPORT AN INCREASE OF 2 CM TO PHYSICIAN/PROVIDER. [code = SKILLED NURSE FOR O/A, TEACHING AND SELF-MANAGEMENT RELATED TO HEART FAILURE. INSTRUCT PATIENT/CAREGIVER ON SIGNS AND SYMPTOMS OF EXACERBATION TO REPORT AND IMPORTANCE OF OBTAINING AND RECORDING DAILY WEIGHT AND/OR MEASUREMENTS. SN OR TRAINED PATIENT/CAREGIVER TO OBTAIN WEIGHT DAILY AND WEIGHT GAIN OF 2 LBS OVERNIGHT OR 5 LBS IN 1 WEEK TO BE REPORTED TO PHYSICIAN/PROVIDER. IF UNABLE TO WEIGH PATIENT, SN OR TRAINED PATIENT/CAREGIVER TO OBTAIN MEASUREMENT OF CALF IN CM DAILY AND REPORT AN INCREASE OF 2 CM TO PHYSICIAN/PROVIDER.] Future Scheduled Test SKILLED NU RSE FOR O/A AND SKILLED TEACHING RELATED TO SIGNS AND SYMPTOMS AND MANAGEMENT OF ANEMIA. [code = SKILLED NURSE FOR O/A AND SKILLED TEACHING RELATED TO SIGNS AND SYMPTOMS AND MANAGEMENT OF ANEMIA.] Future Scheduled Test SKILLED NU RSE FOR O/A AND TEACHING OF DIABETIC MANAGEMENT INCLUDING BLOOD SUGAR MONITORING/USE OF GLUCOMETER, DIABETIC DIET, LOWER EXTREMITY SKIN INSPECTION, PROPER SKIN/FOOT CARE, AND SIGNS AND SYMPTOMS HYPO/HYPERGLYCEMIA TO REPORT. [code = SKILLED NURSE FOR O/A AND TEACHING OF DIABETIC MANAGEMENT INCLUDING BLOOD SUGAR MONITORING/USE OF GLUCOMETER, DIABETIC DIET, LOWER EXTREMITY SKIN INSPECTION, PROPER SKIN/FOOT CARE, AND SIGNS AND SYMPTOMS HYPO/HYPERGLYCEMIA TO REPORT.] Future Scheduled Test SKILLED NU RSE FOR O/A AND SKILLED TEACHING RELATED TO SIGNS AND SYMPTOMS AND MANAGEMENT OF RA. [code = SKILLED NURSE FOR O/A AND SKILLED TEACHING RELATED TO SIGNS AND SYMPTOMS AND MANAGEMENT OF RA.] Future Scheduled Test PATIENT SÁNCHEZ S A RISK OF HOSPITALIZATION AND ED USE. SKILLED NURSE TO ESTABLISH SUPPORT MEASURES TO MINIMIZE RISK OF HOSPITALIZATION AND ED USE, AND INSTRUCT PATIENT/CAREGIVER ON METHODS TO REDUCE AVOIDABLE HOSPITALIZATION AND ED USE. [code = PATIENT HAS A RISK OF HOSPITALIZATION AND ED USE. SKILLED NURSE TO ESTABLISH SUPPORT MEASURES TO MINIMIZE RISK OF HOSPITALIZATION AND ED USE, AND INSTRUCT PATIENT/CAREGIVER ON METHODS TO REDUCE AVOIDABLE HOSPITALIZATION AND ED USE.] Future Scheduled Test SKILLED NU RSE TO PROVIDE INSTRUCTION TO PATIENT/CAREGIVER RELATED TO DISCHARGE PLANNING. [code = SKILLED NURSE TO PROVIDE INSTRUCTION TO PATIENT/CAREGIVER RELATED TO DISCHARGE PLANNING.] Future Scheduled Test SKILLED NU RSE TO PERFORM ENVIRONMENTAL SAFETY RISK ASSESSMENT AND FALL RISK ASSESSMENT AND PROVIDE INSTRUCTION TO IMPLEMENT ENVIRONMENTAL SAFETY AND FALL PREVENTION STRATEGIES THROUGHOUT THE CERTIFICATION PERIOD. SKILLED NURSE WILL MAINTAIN SITUATIONAL AWARENESS AND WILL NOTIFY [employer]MENT AND PHYSICIAN/PROVIDER WITH ANY CHANGE IN CONDITION. [code = SKILLED NURSE TO PERFORM ENVIRONMENTAL SAFETY RISK ASSESSMENT AND FALL RISK ASSESSMENT AND PROVIDE INSTRUCTION TO IMPLEMENT ENVIRONMENTAL SAFETY AND FALL PREVENTION STRATEGIES THROUGHOUT THE CERTIFICATION PERIOD. SKILLED NURSE WILL MAINTAIN SITUATIONAL AWARENESS AND WILL NOTIFY CLINICAL CLEANER LABORATORY EQUIPMENT AND PHYSICIAN/PROVIDER WITH ANY CHANGE IN CONDITION.] Future Scheduled Test SKILLED NU RSE FOR OBSERVATION AND ASSESSMENT OF PATIENT S PAIN LEVEL AND EFFECTIVENESS OF PAIN MANAGEMENT REGIMEN. SKILLED NURSE TO INSTRUCT PATIENT/CAREGIVER REGARDING PHARMACOLOGIC AND NON-PHARMACOLOGIC PAIN CONTROL MEASURES. SKILLED NURSE TO REPORT TO PHYSICIAN IF PAIN LEVEL IS OUTSIDE OF ESTABLISHED PARAMETERS. [code = SKILLED NURSE FOR OBSERVATION AND ASSESSMENT OF PATIENT S PAIN LEVEL AND EFFECTIVENESS OF PAIN MANAGEMENT REGIMEN. SKILLED NURSE TO INSTRUCT PATIENT/CAREGIVER REGARDING PHARMACOLOGIC AND NON-PHARMACOLOGIC PAIN CONTROL MEASURES. SKILLED NURSE TO REPORT TO PHYSICIAN IF PAIN LEVEL IS OUTSIDE OF ESTABLISHED PARAMETERS.] Future Scheduled Test SKILLED NU RSE TO ASSESS PATIENT'S SKIN INTEGRITY AND INSTRUCT PATIENT/CAREGIVER ON MEASURES TO PREVENT PRESSURE ULCERS. [code = SKILLED NURSE TO ASSESS PATIENT'S SKIN INTEGRITY AND INSTRUCT PATIENT/CAREGIVER ON MEASURES TO PREVENT PRESSURE ULCERS.] Future Scheduled Test SKILLED NU RSE TO REVIEW PATIENT MEDICATIONS (PRESCRIPTION/OTC). INSTRUCT PATIENT/CAREGIVER ON ALL MEDICATIONS INCLUDING PURPOSE, WHEN TO TAKE, IMPORTANCE OF MEDICATION ADHERENCE, MONITORING OF EFFECTIVENESS, ADVERSE DRUG REACTIONS, POSSIBLE SIDE EFFECTS, AND WHEN TO NOTIFY AGENCY OR PHYSICIAN/PROVIDER OF ANY CONCERNS. [code = SKILLED NURSE TO REVIEW PATIENT MEDICATIONS (PRESCRIPTION/OTC). INSTRUCT PATIENT/CAREGIVER ON ALL MEDICATIONS INCLUDING PURPOSE, WHEN TO TAKE, IMPORTANCE OF MEDICATION ADHERENCE, MONITORING OF EFFECTIVENESS, ADVERSE DRUG REACTIONS, POSSIBLE SIDE EFFECTS, AND WHEN TO NOTIFY AGENCY OR PHYSICIAN/PROVIDER OF ANY CONCERNS.] Future Scheduled Test PHYSICAL T HERAPIST TO EVALUATE PATIENT SECONDARY TO FUNCTIONAL DEFICITS/SAFETY CONCERNS. PHYSICAL THERAPY TO ESTABLISH /UPGRADE/DOWNGRADE THERAPEUTIC EXERCISE PROGRAM AND INSTRUCT PATIENT/CAREGIVER ON EXERCISE PRECAUTIONS WITH WRITTEN HOME PROGRAM. MAY INCLUDE AROM, RROM APPROPRIATE TO IMPROVE FUNCTIONAL STRENGTH AND RANGE OF MOTION. PHYSICAL THERAPY TO INSTRUCT PATIENT/CAREGIVER ON GAIT TRAINING TECHNIQUES USING APPROPRIATE ASSISTIVE DEVICE, PROPER BODY MECHANICS TO IMPROVE MOBILITY, AND PREVENT INJURY OF PATIENT AND/OR CAREGIVER. PHYSICAL THERAPY TO INSTRUCT PATIENT/CAREGIVER ON BALANCE AND BALANCE STRATEGIES TO IMPROVE SAFE MOBILITY AND REDUCE RISK FOR FALL AND INJURY SUMMARY OF THERAPY EVAL/ASSESSMENT FINDINGS AND REASON(S) SKILLS OF A THERAPIST ARE INDICATED: HOME SKILLED PHSICAL THERAPY EVALUATION COMPLETED ON 08/15/25 PATIENT GOAL: BE ABLE TO WALK BETTER AND FURTHER. IMPROVE MY ENDURANCE. 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 NEUROPATHY, RHEUMATOID ARTHRITIS CLOF: MOD I WITH SIT TO STAND TRANSFERS FROM THE RECLINER; MOD I WITH AMBULATION INSIDE THE HOME USING HIS ROLLATOR WALKER ( SLOW STEP THROUGH GAIT); LIMITED ENDURANCE PLOF:I WITH SIT TO STAND TRANSFERS FROM THE RECLINER; MOD I WITH AMBULATION USING THE ROLLATOR WALKER; MOD I WITH SHOWER TRANSFERS. IMPROVED ENDURANCE DME INCLUDES BUT NOT LIMITED TO: ROLLATOR WALKER, CANE, GRAB BAR IN SHOWER, AND BY THE TOILET ( MN IS GOING TO INSTALL A STAIR LIFT, AND A RAMP IN THE NEAR FUTURE) PAIN: BILATERAL KNEES, LE'S - ACHINESS WITH MOVING; INTERMITTENT LB PAIN - ACHE EDEMA:3+ PITTING EDEMA LE STRENGTH IN SITTING: HIP FLEXION - 3+ TO 4-/5 BALANCE: STATIC STANDING - FAIR SPECIAL TESTS: 1. TUG 31 SECS WITH ROLLATOR WALKER 2. 30 SEC SIT TO STAND - 0 REPS EDUCATION:RE 1. FALL SAFETY AND PREVENTION: KEEPING PATHWAYS CLEARED ( TV ROOM CLUTTERED); MAKING SURE HE IS NOT DIZZY WHEN STANDING AFTER SITTING FOR A WHILE - IF DIZZINESS DOES NOT SUBSIDE PATIENT TO SIT BACK DOWN UNTIL IT DOES; USE OF ROLLATOR WALKER WITH ALL AMBULATION FOR INCREASED STABILITY DUE TO DECREASED DYNAMIC STANDING BALANCE AND INCREASED LE WEAKNESS 2. CHF - SIGNS AND SYMPTOMS. DAILY WEIGHT CHECKS ( PATIENT HAS NOT TAKEN HIS WEIGHT THE LAST FEW AM'S). WHEN TO CALL THE MD RE WEIGHT GAIN ( 2-3#/DAY OR 5-6#/WK); EDEMA MANAGEMENT 3. HEP - SITTING LE AROM EXERCISES - HIP FLEX, LAQS, ANKLE PUMPS - 10 REPS 2-3/DAY 4. PAIN MANAGEMENT - SPECIFICALLY NON-PHARMACOLOGICAL METHODS - HEAT/ICE, POSITIONING, AVOIDING STATIC POSITIONING PATIENT IS A GOOD CANDIDATE FOR HOME SKILLED PHYSICAL THERAPY IN ORDER TO ADDRESS HIS CURRENT IMPAIRMENTS AND IMPROVE HIS FUNCTIONAL MOBILITY. REHAB POTENTIAL GOOD VO GIVEN FROM HILARIO @410PM FROM PCP OFFICE RE HOME SKILLED PT 1/1WK FOR 1 WK F/B 2/WK FOR 3WEEKS THERAPIST TO REVIEW PATIENT MEDICATIONS (PRESCRIPTION/OTC). INSTRUCT PATIENT/CAREGIVER ON ALL MEDICATIONS INCLUDING PURPOSE, WHEN TO TAKE, IMPORTANCE OF MEDICATION ADHERENCE, MONITORING OF EFFECTIVENESS, ADVERSE DRUG EVENTS, POSSIBLE SIDE EFFECTS, AND WHEN TO NOTIFY AGENCY OR PHYSICIAN/PROVIDER OF ANY CONCERNS. THERAPIST TO PROVIDE FUNCTIONAL STRATEGIES/TECHNIQUES FOR MANAGING MEDICATIONS. [code = PHYSICAL THERAPIST TO EVALUATE PATIENT SECONDARY TO FUNCTIONAL DEFICITS/SAFETY CONCERNS. PHYSICAL THERAPY TO ESTABLISH /UPGRADE/DOWNGRADE THERAPEUTIC EXERCISE PROGRAM AND INSTRUCT PATIENT/CAREGIVER ON EXERCISE PRECAUTIONS WITH WRITTEN HOME PROGRAM. MAY INCLUDE AROM, RROM APPROPRIATE TO IMPROVE FUNCTIONAL STRENGTH AND RANGE OF MOTION. PHYSICAL THERAPY TO INSTRUCT PATIENT/CAREGIVER ON GAIT TRAINING TECHNIQUES USING APPROPRIATE ASSISTIVE DEVICE, PROPER BODY MECHANICS TO IMPROVE MOBILITY, AND PREVENT INJURY OF PATIENT AND/OR CAREGIVER. PHYSICAL THERAPY TO INSTRUCT PATIENT/CAREGIVER ON BALANCE AND BALANCE STRATEGIES TO IMPROVE SAFE MOBILITY AND REDUCE RISK FOR FALL AND INJURY SUMMARY OF THERAPY EVAL/ASSESSMENT FINDINGS AND REASON(S) SKILLS OF A THERAPIST ARE INDICATED: HOME SKILLED PHSICAL THERAPY EVALUATION COMPLETED ON 08/15/25 PATIENT GOAL: BE ABLE TO WALK BETTER AND FURTHER. IMPROVE MY ENDURANCE. 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 NEUROPATHY, RHEUMATOID ARTHRITIS CLOF: MOD I WITH SIT TO STAND TRANSFERS FROM THE RECLINER; MOD I WITH AMBULATION INSIDE THE HOME USING HIS ROLLATOR WALKER ( SLOW STEP THROUGH GAIT); LIMITED ENDURANCE PLOF:I WITH SIT TO STAND TRANSFERS FROM THE RECLINER; MOD I WITH AMBULATION USING THE ROLLATOR WALKER; MOD I WITH SHOWER TRANSFERS. IMPROVED ENDURANCE DME INCLUDES BUT NOT LIMITED TO: ROLLATOR WALKER, CANE, GRAB BAR IN SHOWER, AND BY THE TOILET ( MN IS GOING TO INSTALL A STAIR LIFT, AND A RAMP IN THE NEAR FUTURE) PAIN: BILATERAL KNEES, LE'S - ACHINESS WITH MOVING; INTERMITTENT LB PAIN - ACHE EDEMA:3+ PITTING EDEMA LE STRENGTH IN SITTING: HIP FLEXION - 3+ TO 4-/5 BALANCE: STATIC STANDING - FAIR SPECIAL TESTS: 1. TUG 31 SECS WITH ROLLATOR WALKER 2. 30 SEC SIT TO STAND - 0 REPS EDUCATION:RE 1. FALL SAFETY AND PREVENTION: KEEPING PATHWAYS CLEARED ( TV ROOM CLUTTERED); MAKING SURE HE IS NOT DIZZY WHEN STANDING AFTER SITTING FOR A WHILE - IF DIZZINESS DOES NOT SUBSIDE PATIENT TO SIT BACK DOWN UNTIL IT DOES; USE OF ROLLATOR WALKER WITH ALL AMBULATION FOR INCREASED STABILITY DUE TO DECREASED DYNAMIC STANDING BALANCE AND INCREASED LE WEAKNESS 2. CHF - SIGNS AND SYMPTOMS. DAILY WEIGHT CHECKS ( PATIENT HAS NOT TAKEN HIS WEIGHT THE LAST FEW AM'S). WHEN TO CALL THE MD RE WEIGHT GAIN ( 2-3#/DAY OR 5-6#/WK); EDEMA MANAGEMENT 3. HEP - SITTING LE AROM EXERCISES - HIP FLEX, LAQS, ANKLE PUMPS - 10 REPS 2-3/DAY 4. PAIN MANAGEMENT - SPECIFICALLY NON-PHARMACOLOGICAL METHODS - HEAT/ICE, POSITIONING, AVOIDING STATIC POSITIONING PATIENT IS A GOOD CANDIDATE FOR HOME SKILLED PHYSICAL THERAPY IN ORDER TO ADDRESS HIS CURRENT IMPAIRMENTS AND IMPROVE HIS FUNCTIONAL MOBILITY. REHAB POTENTIAL GOOD VO GIVEN FROM HILARIO @410PM FROM PCP OFFICE RE HOME SKILLED PT 11/02WK FOR 1 WK F/B 2/WK FOR 3WEEKS THERAPIST TO REVIEW PATIENT MEDICATIONS (PRESCRIPTION/OTC). INSTRUCT PATIENT/CAREGIVER ON ALL MEDICATIONS INCLUDING PURPOSE, WHEN TO TAKE, IMPORTANCE OF MEDICATION ADHERENCE, MONITORING OF EFFECTIVENESS, ADVERSE DRUG EVENTS, POSSIBLE SIDE EFFECTS, AND WHEN TO NOTIFY AGENCY OR PHYSICIAN/PROVIDER OF ANY CONCERNS. THERAPIST TO PROVIDE FUNCTIONAL STRATEGIES/TECHNIQUES FOR MANAGING MEDICATIONS.] Goal Patient Goal - TO FEEL ANDREW R Goal Provider Goal - A PLAN OF CARE WILL BE ESTABLISHED THAT MEETS PATIENT'S HALF-WAY NEEDS AND INCLUDES PATIENT GOAL FOR HOME HEALTH. Goal Provider Goal - PATIENT / CAREGIVER WILL VERBALIZE UNDERSTANDING OF EFFECTS OF URINARY INCONTINENCE BY THE END OF THE CERTIFICATION PERIOD. Goal Provider Goal - URINE SPECIMEN WILL BE OBTAINED PRN FOR SIGNS AND SYMPTOMS OF UTI AND RESULTS WILL BE REPORTED TO PHYSICIAN THROUGHOUT THE CERTIFICATION PERIOD. Goal Provider Goal - PATIENT/CAREGIVER WILL VERBALIZE/DEMONSTRATE MANAGEMENT OF CARDIAC DISEASE PROCESS AND EXACERBATIONS WILL BE IDENTIFIED AND PROMPTLY REPORTED THROUGHOUT THE CERTIFICATION PERIOD. Goal Provider Goal - EXACERBATIONS OF GASTROINTESTINAL DISEASE WILL BE PROMPTLY IDENTIFIED AND INTERVENTIONS IMPLEMENTED TO MINIMIZE RISKS TO PATIENT BY END OF EPISODE. Goal Provider Goal - PATIENT/CAREGIVER WILL VERBALIZE UNDERSTANDING OF GENITOURINARY DISEASE PROCESS, AND EXACERBATIONS OF GENITOURINARY DISEASE WILL BE PROMPTLY IDENTIFIED FOR EARLY INTERVENTION THROUGHOUT THE CERTIFICATION PERIOD. Goal Provider Goal - BLOOD SUGAR READING WILL BE OBTAINED ORDERED THROUGHOUT CERTIFICATION PERIOD. Goal Provider Goal - PATIENT/CAREGIVER WILL VERBALIZE/DEMONSTRATE THE ABILITY TO MANAGE CIRCULATORY DISEASE PROCESS AND EXACERBATIONS WILL BE IDENTIFIED FOR EARLY INTERVENTION THROUGHOUT THE CERTIFICATION PERIOD. Goal Provider Goal - A PHYSICAL THERAPY EVALUATION TO BE COMPLETED WITH RECOMMENDATIONS AND/OR WRITTEN PLAN OF TREATMENT ESTABLISHED FOR PHYSICIAN S SIGNATURE. Goal Provider Goal - PATIENT/CAREGIVER WILL VERBALIZE UNDERSTANDING OF SIGNS AND SYMPTOMS, COMPLICATIONS, AND MANAGEMENT OF ATRIAL FIBRILLATION THROUGHOUT THE CERTIFICATION PERIOD. Goal Provider Goal - PATIENT/CAREGIVER WILL VERBALIZE SIGNS AND SYMPTOMS OF HYPERTENSION AND WILL BE ABLE TO DEMONSTRATE ABILITY TO MANAGE EXACERBATION BY END OF THE EPISODE. Goal Provider Goal - PATIENT/CAREGIVER WILL VERBALIZE/DEMONSTRATE KNOWLEDGE AND MANAGEMENT OF COPD BY END OF EPISODE. Goal Provider Goal - PATIENT/CAREGIVER WILL VERBALIZE/DEMONSTRATE KNOWLEDGE AND MANAGEMENT OF HEART FAILURE DISEASE PROCESS BY END OF EPISODE. Goal Provider Goal - PATIENT/CARGIVER WILL VERBALIZE UNDERSTANDING OF ANEMIA INCLUDING SIGNS AND SYMPTOMS, MANAGEMENT OF COMPLICATIONS, AND PRESCRIBED TREATMENT REGIMEN BY END OF EPISODE. Goal Provider Goal - PATIENT/CAREGIVER WILL VERBALIZE/DEMONSTRATE KNOWLEDGE OF DIABETIC MANAGEMENT. CHANGES IN DIABETIC STATUS WILL BE IDENTIFIED AND REPORTED TO PHYSICIAN FOR PROMPT INTERVENTION THROUGHOUT THE CERTIFICATION PERIOD. Goal Provider Goal - PATIENT/CAREGIVER WILL VERBALIZE UNDERSTANDING OF AUTOIMMUNE DISEASE INCLUDING SIGNS AND SYMPTOMS, MANAGEMENT OF COMPLICATIONS, AND PRESCRIBED TREATMENT REGIMEN BY END OF EPISODE. Goal Provider Goal - PATIENT WILL HAVE SUPPORT MEASURES ESTABLISHED TO PREVENT HOSPITALIZATION AND ED USE AND PATIENT/CAREGIVER WILL VERBALIZE/DEMONSTRATE METHODS TO REDUCE AVOIDABLE HOSPITALIZATION AND ED USE BY END OF EPISODE. Goal Provider Goal - PATIENT/CAREGIVER WILL VERBALIZE UNDERSTANDING OF DISCHARGE PLANNING INSTRUCTIONS BY DATE OF DISCHARGE. Goal Provider Goal - PATIENT/CAREGIVER WILL VERBALIZE/DEMONSTRATE EFFECTIVE ENVIRONMENTAL SAFETY AND FALL PREVENTION STRATEGIES, WILL REMAIN SAFE IN THE COMMUNITY, AND WILL BE FREE OF DANGER TO SELF AND OTHERS THROUGHOUT THE CERTIFICATION PERIOD. Goal Provider Goal - PATIENT/CAREGIVER WILL DEMONSTRATE UNDERSTANDING OF PHARMACOLOGIC AND NONPHARMACOLOGIC PAIN CONTROL MEASURES AND PATIENT WILL HAVE IMPROVEMENT IN PAIN INTERFERING WITH ACTIVITY EVIDENCED BY PAIN AT A LEVEL THAT IS ACCEPTABLE TO THE PATIENT AND PAIN LEVEL WITHIN ESTABLISHED PARAMETERS BY END OF CERTIFICATION PERIOD. Goal Provider Goal - PATIENT/CAREGIVER WILL VERBALIZE UNDERSTANDING OF PRESSURE ULCER PREVENTION BY END OF THE EPISODE. Goal Provider Goal - PATIENT/CAREGIVER WILL VERBALIZE UNDERSTANDING OF EDUCATION PROVIDED ON MEDICATIONS BY THE END OF THE CERTIFICATION PERIOD. Goal Provider Goal - PHYSICAL THERAPY EVALUATION TO BE COMPLETED WITH RECOMMENDATIONS AND/OR WRITTEN TREATMENT PLAN OF CARE ESTABLISHED FOR THE PHYSICIAN S SIGNATURE PATIENT/CAREGIVER WILL PERFORM THERAPEUTIC EXERCISE/S AND DEMONSTRATE PARTICIPATION IN A HOME PROGRAM. PATIENT/CAREGIVER WILL DEMONSTRATE IMPROVED GAIT TECHNIQUES TO MINIMIZE RISK OF INJURY. PATIENT/CAREGIVER WILL DEMONSTRATE IMPROVED BALANCE AND REDUCE THE RISK OF FALLS AND INJURY. PATIENT/CAREGIVER WILL VERBALIZE/DEMONSTRATE UNDERSTANDING OF MEDICATIONS AND STRATEGIES/TECHNIQUES FOR MEDICATION MANAGEMENT BY THE END OF THE CERTIFICATION PERIOD. Encounters Start Date/Time End Date/Time Encounter Type Admission Type Attending [facility] Care Facility Care Department Encounter ID Discharge Date Discharge Status Discharge Condition Discharge Reason Percent Goals Met 2025-08-08 00:00:00 2025-10-06 00:00:00 Outpatient SCOTTIE DIAS [facility] [id number]
== END 2025-09-26 14:12 | disposition home or self-care (01) ==
PROVIDERS: PCP Family Medicine; Visit Provider Physician Assistant
DX: M17.0 Bilateral primary osteoarthritis of knee (principal)
CPT/HCPCS: 20610

== ENCOUNTER → 2025-09-26 13:52 | Outpatient (BNVA) | payer MEDICARE, OTHER, SELFPAY | PROVIDERS: PCP Family Medicine; Visit Provider Physician Assistant | DX: M17.0 Bilateral primary osteoarthritis of knee (principal) | CPT/HCPCS: 20610; J2003; J3301 ==